=== PATIENT | female | born 1960 | race Caucasian/White ===

== ENCOUNTER 2019-06-26 12:08 | Emergency (ER) | payer OTHER, SELFPAY ==
[2019-06-26 12:20] VITALS: BP 126/72; PULSE 73; RESP 18; TEMP 37.2; O2SAT 95
--- NOTE | 2019-06-26 12:34 | ED.URI ---
HPI - URI/Sore Throat General Chief Complaint: Upper Respiratory Infection Stated Complaint: Cough sob Time Seen by Provider: 06/26/19 12:34 Source: patient and family Mode of arrival: ambulatory Limitations: no limitations History of Present Illness HPI Narrative: 59-year-old woman comes in today complaining of sinus pressure, purulent nasal drainage, facial pain at radiates to her left ear, cough and some mild shortness of breath. She states her symptoms started a week ago but she developed a fever of 101 last night. She denies history of lung disease and smoking. MD elicited complaint: fever, cough, rhinorrhea, nasal congestion and sinus pain Onset (ago): week(s) (1) Consistency: constant and progressively worsening Severity: severe Description of mucous: purulent Able to tolerate fluids by mouth: Yes Exacerbating factors: nothing Associated symptoms: fever, headache, rhinorrhea, nasal congestion, cough, shortness of breath and nausea Related Data Home Medications Medication Instructions Recorded Confirmed levetiracetam 750 mg PO DAILY 06/26/19 06/26/19 montelukast 10 mg PO DAILY 06/26/19 06/26/19 mupirocin TOPICAL 06/26/19 nystatin TOPICAL 06/26/19 pantoprazole 40 mg PO DAILY 06/26/19 06/26/19 phenytoin sodium extended 100 mg PO DAILY 06/26/19 06/26/19 Allergies Allergy/AdvReac Type Severity Reaction Status Date / Time No Known Allergies Allergy Verified 06/26/19 13:02 Review of Systems Constitutional: Constitutional: Reports fatigue and Reports fever(s) Eyes: Eyes: Denies change in vision and Denies photophobia ENT: Denies dysphagia, Reports nasal congestion and Denies sore throat Cardiovascular: Cardiovascular: Denies chest pain and Denies radiating jaw, neck or arm pain Respiratory: Respiratory: Reports cough, Reports dyspnea and Denies wheezing Gastrointestinal: Gastrointestinal: Denies abdominal pain, Denies diarrhea, Reports nausea and Denies vomiting Integumentary/Breasts: Skin/Breast: Denies pruritus, Denies erythema and Denies rash Neurologic: Denies vertigo, Denies syncope and Denies focal weakness Endocrine: Endocrine: Denies polydipsia and Denies polyuria Hematologic/Lymphatic: Hematologic/Lymphatic: Denies easy bleeding and Denies easy bruising Allergic/Immunologic: Allergic/Immunologic: Denies lip swelling and Denies wheezing PMFSH Past Medical History Medical History (Updated 06/26/19 @ 13:36 by Edy Gomez MD) GERD (gastroesophageal reflux disease) Seizures Surgical History Surgical History History of ankle surgery History of carpal tunnel surgery History of hysterectomy History of tubal ligation Hx of gastric bypass Social History Social History (Updated 06/26/19 @ 12:47 by Edy Gomez MD) Smoking status: Never smoker Alcohol intake: never Substance use: never Living arrangements: with family Exam Const: Other: Mild acute distress HENMT: Ears: external ears normal, TM's normal bilaterally and EAC's normal Face and sinus: sinus tenderness (left ) maxillary Mouth: Yes Normal oral and palatal mucosa present and Yes moist mucous membranes Throat: posterior oropharynx normal and uvula midline Eyes: Conjunctivae: conjunctivae normal Pupils: Equal, round and reactive pupils present EOM: EOMs intact bilaterally Resp: Effort & Inspection: normal respiratory effort and not labored Auscultation: clear to auscultation bilaterally, no rales, no rhonchi and no wheezes Cardio: Rate: regular rate Rhythm: regular rhythm Heart sounds: no murmurs GI: GI Palp: Yes Soft to palpation and No Tenderness to palpation present (GI) Skin: General skin exam: normal color, no jaundice and no pallor Rashes: no rashes Neuro: General: patient oriented x3, moves all extremities and CN's II-XI intact bilaterally Speech: normal speech Extrem: General: normal to inspection and no clubbing, cyanosis o
[2019-06-26 13:28] LABS: Influenza Control Valid (Valid)
[2019-06-26 13:57] VITALS: RESP 17
== END 2019-06-26 13:59 | disposition home or self-care (01) ==
PROVIDERS: Emergency Provider Emergency Medicine; PCP Internal Medicine
DX: J01.80 Other acute sinusitis (principal)
CPT/HCPCS: 87804; 99283

== ENCOUNTER 2019-11-29 10:48 | Outpatient (CLI) | payer OTHER, SELFPAY ==
--- NOTE | ~2019-11-29 | MM_ITS ---
EXAMINATION: MM screening gisella BI w moni HISTORY: Screening mammogram TECHNIQUE: Craniocaudal and mediolateral oblique 3-D tomosynthesis images were obtained and synthetic 2-D images were generated. CAD analysis was submitted and interpreted. COMPARISON: 09/17/2018, 08/17/2017, 07/23/2016 bilateral digital screening mammogram examinations BREAST PARENCHYMAL COMPOSITION: The breasts are almost entirely fatty. FINDINGS: There is no evidence of suspicious mass, calcification, or architectural distortion to sugg est malignancy in either breast. There has been no suspicious interval change. IMPRESSION: 1. No mammographic evidence of malignancy. 2. Recommend routine screening mammography in one year. BI-RADS Category 1: Negative Reviewed, dictated and finalized at location A.
== END 2019-11-29 10:49 | disposition home or self-care (01) ==
LOC: CHSIMG 10:50
PROVIDERS: PCP Internal Medicine; Visit Provider Internal Medicine
DX: Z12.31 Encounter for screening mammogram for malignant neoplasm of breast (principal)
CPT/HCPCS: 77063; 77067

== ENCOUNTER 2020-03-03 09:47 | Outpatient (CLI) | payer OTHER, SELFPAY ==
[2020-03-03 10:01] LABS: Add Urine Microscopic? NO; Appearance Urine Clear (Clear); Basophils Absolute Auto 0.06 K/mm3 (0.00-0.10); Basophils Percent Auto 1.2 % (0.0-1.0); Bilirubin Urine Negative (Negative); Blood Urine Negative (Negative); Color Urine Yellow (Yellow); Eosinophils Absolute Auto 0.17 K/mm3 (0.02-0.50); Eosinophils Percent Auto 3.4 % (1.0-6.0); Glucose Urine UA Negative (Negative); Hematocrit 40.4 % (35.0-49.0); Hemoglobin 12.9 g/dL (12.0-15.0); Immature Granulocyte Absolute 0.01 K/mm3 (0.00-0.00); Immature Granulocyte Percent A 0.2 % (0.0-0.0); Ketones Urine Negative (Negative); Leukocyte Esterase Ur Negative LEU/UL (Negative); Lymphocytes Absolute Auto 1.37 K/mm3 (1.10-4.50); Lymphocytes Percent Auto 27.5 % (18.0-42.0); Mean Corpuscular HGB Conc 31.9 g/dL (32.0-36.0); Mean Platelet Volume 11.2 fl (9.2-11.8); Monocytes Absolute Auto 0.33 K/mm3 (0.10-0.90); Monocytes Percent Auto 6.6 % (2.0-11.0); Neutrophils Absolute Auto 3.1 K/mm3 (1.7-7.2); Neutrophils Percent Auto 61.1 % (50.0-70.0); Nitrate Urine Negative (Negative); Platelet Count Result 219 K/mm3 (150-420); Protein Urine Negative (Negative); Red Cell Distribution Width 13.9 % (11.6-14.4); Specific Grav Ur 1.015 (1.010-1.020); Urobilinogen Urine 0.2 mg/dL (0.2-1.0); pH Urine 6.5 (5.0-8.0)
[2020-03-03 10:48] LABS: Alanine Aminotransferase 21 U/L (14-59); Albumin Level 3.6 g/dL (3.4-5.0); Alkaline Phosphatase 139 U/L (46-116); Anion Gap 11 mmol/L (8-16); Aspartate Amino Transferase 12 U/L (15-37); Bilirubin,Total 0.3 mg/dL (0.00-1.00); Blood Urea Nitrogen 10 mg/dL (7-18); Calcium 8.9 mg/dL (8.5-10.1); Carbon Dioxide 26 mmol/L (21-32); Chloride 107 mmol/L (98-108); Cholesterol 149 mg/dL (0-200); Estimated Glomerular Filt Rate > 60; Ferritin 17 ng/mL (8-252); Glucose 90 mg/dL (70-99); HDL Direct 68 mg/dL (40-60); Iron 96 ug/dL (50-170); LDL Cholesterol Calculated 64 mg/dL (<130); Osmolality Calculated 297 mOsm/kg (285-295); Potassium 4.6 mmol/L (3.5-5.1); Sodium 144 mmol/L (136-145); Total Protein 6.5 g/dL (6.4-8.2); Triglycerides 87 mg/dL (0-150)
[2020-03-08 10:24] LABS: Vitamin D 25 Hydroxy 24 ng/mL (30-100)
== END 2020-03-03 09:48 | disposition home or self-care (01) ==
LOC: CHSLAB 09:48
PROVIDERS: PCP Internal Medicine; Visit Provider Internal Medicine
DX: Z00.00 Encounter for general adult medical examination without abnormal findings (principal)
CPT/HCPCS: 36415; 80053; 80061; 81003; 82306; 82728; 83540; 85025

== ENCOUNTER 2020-03-06 10:55 | Outpatient (CLI) | payer OTHER, SELFPAY ==
--- NOTE | ~2020-03-06 | US_ITS ---
EXAMINATION: US right upper quadrant EXAM DATE: 03/06/2020 11:36 INDICATION: Right upper quadrant pain. TECHNIQUE: Multiple grayscale and Doppler images of the abdomen right upper quadrant were obtained (b y a technologist who performed the scan) and subsequently reviewed. Comparison is made to prior exami nation from 07/24/2017. FINDINGS: The pancreatic head and body are normal in appearance. The pancreatic tail is not visualized. The l iver has normal echogenicity and contour. There are no focal liver lesions identified. There is no evidence of intrahepatic biliary duct dilation. Portal venous flow was seen in the hepatopedal, nor mal direction and has normal Doppler waveform. No right-sided hydronephrosis. Common bile duct measures 6 mm, which is normal. The gallbladder wall is normal in thickness, with ex pected amount of distention. No sonographic evidence of pericholecystic fluid. There is no cholelit hiases. Technologist noted tenderness over the otherwise sonographically unremarkable gallbladder. IMPRESSION: 1. Right upper quadrant tenderness. Sonographically normal gallbladder. Reviewed, dictated and finalized at location B. 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
== END 2020-03-06 10:56 | disposition home or self-care (01) ==
LOC: CHSIMG 10:56
PROVIDERS: PCP Internal Medicine; Visit Provider Internal Medicine
DX: R10.11 Right upper quadrant pain (principal)
CPT/HCPCS: 76705

== ENCOUNTER 2020-03-30 07:46 | Outpatient (CLI) | payer OTHER, SELFPAY ==
--- NOTE | ~2020-03-30 | NM_ITS ---
EXAMINATION: NM hepatobiliary w pharm DATE: 03/30/2020 10:44 INDICATION: Right upper quadrant abdominal pain COMPARISON: None. TECHNIQUE: 5.9 mCi Tc-99m mebrofenin (Choletec) was administered intravenously. Scintigraphic images of the abdomen were obtained for one hour. 2.6 mcg sincalide (Kinevac) was administered by slow intr avenous infusion, and imaging was continued for 30 minutes. Gallbladder ejection fraction was calcula tomy by the technologist. FINDINGS: There is normal clearance of radiotracer from the blood pool. There is homogeneous tracer uptake by t he liver. Activity progresses to the gallbladder and bowel. The gallbladder ejection fraction (GBEF) is 82% (normal 10-90%, but most patient with gallbladder dysfunction have GBEF < 35% which does over lap with the normal range). IMPRESSION: 1. Normal hepatobiliary scan. Reviewed, dictated and finalized at location A. 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
== END 2020-03-30 07:47 | disposition home or self-care (01) ==
LOC: CHSIMG 07:47
PROVIDERS: PCP Internal Medicine; Visit Provider Internal Medicine
DX: R10.11 Right upper quadrant pain (principal)
CPT/HCPCS: 78227; A9537; J2805

== ENCOUNTER 2020-06-01 17:25 | Emergency (ER) | payer OTHER, SELFPAY ==
--- NOTE | 2020-06-01 17:34 | ED.SKABFB ---
HPI - Skin/Abscess/Foreign Bdy General Chief complaint: Skin/Abscess/Foreign Body Stated complaint: left breast site infection Time Seen by Provider: 06/01/20 17:42 Source: patient Mode of arrival: ambulatory Limitations: no limitations History of Present Illness HPI narrative: 60-year-old woman comes in today complaining of pain, redness and swelling on the upper part of her left breast that started 5 days ago. Patient states that she has had skin abscesses before that were treated with I&D. She states that drained a small amount from a portion on the bottom of the abscess earlier today. Patient states she has had no fever, nausea, vomiting, lightheadedness or weakness. complaint: abscess/boil Onset (ago): day(s) (5) Location: chest Severity: moderate Quality: burning Pain Consistency: constant Relieving factors: none Exacerbating factors: palpation Context: none Associated symptoms: denies other symptoms Treatments prior to arrival: NSAID Related Data Home Medications Medication Instructions Recorded Confirmed levetiracetam 1,500 mg PO BID 06/26/19 06/01/20 montelukast 10 mg PO DAILY 06/26/19 06/01/20 pantoprazole 40 mg PO DAILY 06/26/19 06/01/20 phenytoin sodium extended 300 mg PO HS 06/26/19 06/01/20 Allergies Allergy/AdvReac Type Severity Reaction Status Date / Time No Known Allergies Allergy Verified 06/26/19 13:02 Review of Systems Constitutional: Constitutional: Denies chills and Denies fever(s) ENT: Denies nasal congestion and Denies sore throat Cardiovascular: Cardiovascular: Denies chest pain and Denies radiating jaw, neck or arm pain Respiratory: Respiratory: Denies cough and Denies dyspnea Gastrointestinal: Gastrointestinal: Denies nausea and Denies vomiting Musculoskeletal: Musculoskeletal: Denies arthralgias and Denies joint swelling Integumentary/Breasts: Skin/Breast: Denies pruritus, Reports erythema and Denies rash Neurologic: Denies vertigo, Denies dizziness, Denies syncope, Denies focal weakness and Denies weakness Hematologic/Lymphatic: Hematologic/Lymphatic: Denies easy bleeding and Denies easy bruising Allergic/Immunologic: Allergic/Immunologic: Denies lip swelling and Denies throat swelling PMFSH Past Medical History Medical History GERD (gastroesophageal reflux disease) Seizures Surgical History Surgical History History of ankle surgery History of carpal tunnel surgery History of hysterectomy History of tubal ligation Hx of gastric bypass Social History Social History Smoking status: Never smoker Alcohol intake: never Substance use: never Exam Const: General: alert Nutritional Appearance: obese Orientation/consciousness: patient oriented x3 Limitations: no limitations Other: Mild acute distress Eyes: Conjunctivae: conjunctivae normal Pupils: Equal, round and reactive pupils present EOM: EOMs intact bilaterally Resp: Effort & Inspection: normal respiratory effort and not labored Auscultation: clear to auscultation bilaterally, no rales, no rhonchi and no wheezes Cardio: Rate: regular rate Rhythm: regular rhythm Skin: General skin exam: normal color, no jaundice and no pallor Rashes: no rashes Other: 15 cm diameter area of erythema on the upper portion of the left breast and chest. There is an area of induration approximately 6 cm in diameter with an area of fluctuance in the center portion which is about 2 cm in diameter. There is no drainage. Neuro: General: patient oriented x3, moves all extremities, no focal motor deficits and CN's II-XI intact bilaterally Speech: normal speech Extrem: General: no clubbing, cyanosis or edema Psych: Appearance: grossly normal and well kempt Mental Status: mental status grossly normal Affect: normal affect Attitude: cooperative Thought
[2020-06-01 17:40] VITALS: BP 145/63; PULSE 65; RESP 16; TEMP 36.9; O2SAT 99
[2020-06-01 18:34] VITALS: RESP 20
== END 2020-06-01 18:35 | disposition home or self-care (01) ==
PROVIDERS: Emergency Provider Emergency Medicine; PCP Internal Medicine
DX: L02.213 Cutaneous abscess of chest wall (principal)
CPT/HCPCS: 10060; 87070; 87147; 87186; 87205; 99283

== ENCOUNTER 2020-06-14 08:25 | Outpatient (CLI) | payer OTHER, SELFPAY ==
--- NOTE | ~2020-06-14 | US_ITS ---
US breast LT complete DATE: 06/14/2020 08:58 INDICATION: Infected left breast sebaceous cyst TECHNIQUE: Real-time imaging and color flow imaging targeted at area of clinical complaint at 9:00 5 cm from nipple COMPARISON: 11/29/2019 bilateral digital screening mammogram FINDINGS: Within the subcutaneous adipose tissues there is an approximately 2.2 x 11.7 x 12.9 mm area of hypoechogenicity consistent with focal edema or abscess. There is adjacent increased color flow s ignal consistent with adjacent vascularity, likely due to inflammation. No underlying breast mass or suspicious shadowing is noted. IMPRESSION: Focal approximately 2.2 x 11.7 x 12.9 mm subcutaneous inflammation or abscess at 9:00 5 c m from nipple Reviewed, dictated and finalized at Location A. Reviewed, dictated and finalized at location A. 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
== END 2020-06-14 08:26 | disposition home or self-care (01) ==
LOC: CHSIMG 08:26
PROVIDERS: PCP Internal Medicine; Visit Provider Internal Medicine
DX: N60.02 Solitary cyst of left breast (principal)
CPT/HCPCS: 76641

== ENCOUNTER 2020-06-21 17:31 | Outpatient (CLI) | payer OTHER, SELFPAY ==
[2020-06-21 18:18] LABS: Phenytoin Dilantin 4 ug/mL (10-20)
== END 2020-06-21 17:32 | disposition home or self-care (01) ==
LOC: CHSLAB 17:33
PROVIDERS: PCP Internal Medicine; Visit Provider Internal Medicine
DX: G40.909 Epilepsy, unspecified, not intractable, without status epilepticus (principal)
CPT/HCPCS: 36415; 80185

== ENCOUNTER 2020-10-30 10:28 | Outpatient (CLI) | payer OTHER, SELFPAY ==
--- NOTE | ~2020-10-30 | XR_ITS ---
EXAMINATION: XR ankle RT min 3V EXAM DATE: 10/30/2020 10:50 INDICATION: Right ankle pain anterolaterally. States fall 2010 days ago. TECHNIQUE: Right ankle frontal, lateral and oblique projections obtained and reviewed. Comparison is made to prior examination from 2010. FINDINGS: The right ankle mortise appears intact. There is mild to moderate ankle joint osteoarthr itis, probably secondary to trauma given the fibular plate and supporting screws. There is an old med ial malleolar avulsion fracture. Small calcaneal spurs. There are no acute fractures identified. IMPRESSION: 1. No acute findings. 2. Hardware, arthritis and sequela from prior injury. Reviewed, dictated and finalized at location A.
== END 2020-10-30 10:29 | disposition home or self-care (01) ==
LOC: CHSIMG 10:31
PROVIDERS: PCP Internal Medicine; Visit Provider Nurse Practitioner Family
DX: M25.571 Pain in right ankle and joints of right foot (principal)
CPT/HCPCS: 73610

== ENCOUNTER 2021-02-04 07:13 | Outpatient (CLI) | payer OTHER, SELFPAY ==
[2021-02-04 07:26] LABS: Basophils Absolute Auto 0.06 K/mm3 (0.00-0.10); Basophils Percent Auto 1.2 % (0.0-1.0); Eosinophils Absolute Auto 0.17 K/mm3 (0.02-0.50); Eosinophils Percent Auto 3.3 % (1.0-6.0); Hematocrit 39.7 % (35.0-49.0); Hemoglobin 12.8 g/dL (12.0-15.0); Immature Granulocyte Absolute 0.01 K/mm3 (0.00-0.00); Immature Granulocyte Percent A 0.2 % (0.0-0.0); Lymphocytes Percent Auto 27.2 % (18.0-42.0); Mean Corpuscular HGB Conc 32.2 g/dL (32.0-36.0); Mean Corpuscular Volume 93.2 fL (78.0-102.0); Mean Platelet Volume 10.8 fl (9.2-11.8); Monocytes Absolute Auto 0.35 K/mm3 (0.10-0.90); Monocytes Percent Auto 6.8 % (2.0-11.0); Neutrophils Absolute Auto 3.2 K/mm3 (1.7-7.2); Neutrophils Percent Auto 61.3 % (50.0-70.0); Platelet Count Result 203 K/mm3 (150-420); Red Blood Count 4.26 M/mm3 (4.20-5.40); Red Cell Distribution Width 14.1 % (11.6-14.4); White Blood Count 5.1 K/mm3 (4.8-10.8)
[2021-02-04 07:36] LABS: Bilirubin Urine Negative (Negative); Blood Urine Negative (Negative); Color Urine Yellow (Yellow); Glucose Urine UA Negative (Negative); Ketones Urine Negative (Negative); Leukocyte Esterase Ur Negative (Negative); Nitrate Urine Negative (Negative); Protein Urine Negative (Negative); Specific Grav Ur 1.025 (1.010-1.020); Urobilinogen Urine 0.2 mg/dL (0.2-1.0); pH Urine 5.5 (5.0-8.0)
[2021-02-04 07:37] LABS: Add Urine Microscopic? NO; Appearance Urine Clear (Clear)
[2021-02-04 08:26] LABS: Alanine Aminotransferase 24 U/L (14-59); Albumin Level 3.5 g/dL (3.4-5.0); Alkaline Phosphatase 145 U/L (46-116); Anion Gap 10 mmol/L (8-16); Aspartate Amino Transferase 15 U/L (15-37); Bilirubin,Total 0.3 mg/dL (0.00-1.00); Blood Urea Nitrogen 9 mg/dL (7-18); Calcium 8.7 mg/dL (8.5-10.1); Carbon Dioxide 26 mmol/L (21-32); Chloride 106 mmol/L (98-108); Cholesterol 151 mg/dL (0-200); Estimated Glomerular Filt Rate > 60; Ferritin 12 ng/mL (8-252); Free T3 2.42 pg/mL (2.18-3.98); Free T4 Free Thyroxine 0.74 ng/dL (0.76-1.46); Glucose 89 mg/dL (70-99); HDL Direct 59 mg/dL (40-60); Iron 56 ug/dL (50-170); LDL Cholesterol Calculated 72 mg/dL (<130); Osmolality Calculated 291 mOsm/kg (285-295); Percent Iron Saturation 18 % (12-57); Phenytoin Dilantin 6 ug/mL (10-20); Potassium 4.4 mmol/L (3.5-5.1); Sodium 142 mmol/L (136-145); Thyroid Stimulating Hormone 3.92 uIU/mL (0.36-3.74); Total Protein 6.2 g/dL (6.4-8.2); Triglycerides 102 mg/dL (0-150); Vitamin B12 1213 pg/mL (193-986)
[2021-02-06 18:06] LABS: Vitamin D 25 Hydroxy 23 ng/mL (30-100)
[2021-02-07 06:09] LABS: Zinc 76 mcg/dL (60-130)
[2021-02-07 15:21] LABS: Red Blood Cell Folate 601 ng/mL RBC (>280)
[2021-02-08 19:00] LABS: Vitamin A 52 mcg/dL (38-98)
[2021-02-12 04:09] LABS: Thyroglobulin 5.4 ng/mL (2.8-40.9); Thyroglobulin Antibodies <1 IU/mL (<=1); Thyroid Peroxidase Antibodies 6 IU/mL (<9)
== END 2021-02-04 07:14 | disposition home or self-care (01) ==
LOC: CHSLAB 07:15
PROVIDERS: PCP Internal Medicine; Visit Provider Internal Medicine
DX: G40.309 Generalized idiopathic epilepsy and epileptic syndromes, not intractable, without status epilepticus (principal); I10 Essential (primary) hypertension; E61.1 Iron deficiency; Z98.84 Bariatric surgery status; E03.9 Hypothyroidism, unspecified
CPT/HCPCS: 36415; 80053; 80061; 80185; 81003; 82306; 82607; 82728; 82747; 83540; 83550; 84432; 84439; 84443; 84481; 84590; 84630; 85025; 86376; 86800

== ENCOUNTER 2021-02-08 09:46 | Outpatient (CLI) | payer OTHER, SELFPAY | END 2021-02-08 09:47 | disposition home or self-care (01) | LOC: CHSIMG 09:50 | PROVIDERS: PCP Internal Medicine; Visit Provider Internal Medicine | DX: R11.2 Nausea with vomiting, unspecified (principal); Z53.8 Procedure and treatment not carried out for other reasons | CPT/HCPCS: 99199 ==

== ENCOUNTER 2021-02-11 10:25 | Outpatient (CLI) | payer OTHER, SELFPAY ==
--- NOTE | ~2021-02-11 | US_ITS ---
EXAMINATION: US thyroid DATE: 02/11/2021 13:12 INDICATION: Hypothyroidism. TECHNIQUE: Multiple ultrasound images of the thyroid were obtained. COMPARISON: None. FINDINGS: The right thyroid lobe measures 4.2 x 1.7 x 1.2 cm. The left thyroid lobe measures 4.4 x 1.0 x 1.6 c m. In the right thyroid lobe, there is a 7 mm mixed cystic and solid, hypoechoic, [id number] no dule with smooth margin without echogenic foci (TI-RADS TR3). IMPRESSION: 1. Small thyroid nodule, likely not clinically significant. No follow-up is needed. Reviewed, dictated and finalized at location A. IMPRESSION: 1. Small thyroid nodule, likely not clinically significant. No follow-up is nee ded.
--- NOTE | ~2021-02-11 | NM_ITS ---
EXAMINATION: NM hepatobiliary wo pharm DATE: 02/11/2021 13:14 INDICATION: Right upper quadrant pain, nausea and vomiting COMPARISON: 03/30/2020 TECHNIQUE: 5 mCi Tc-99m mebrofenin (Choletec) was administered intravenously. Scintigraphic images o f the abdomen were obtained for one hour. At the 1 hour time point, the patient drank 8 oz Ensure, an d imaging was continued for 60 minutes. Gallbladder ejection fraction was calculated by the technolog ist. FINDINGS: There is normal clearance of radiotracer from the blood pool. There is homogeneous tracer u ptake by the liver. Activity progresses to the bowel and gallbladder. The gallbladder ejection fract ion (GBEF) is 77%. Note that with this technique, normal GBEF >= 33%. Per report from the technologis t the patient's symptoms were reproduced after drinking Ensure. IMPRESSION: 1. Normal hepatobiliary scan. Reviewed, dictated and finalized at location A.
== END 2021-02-11 10:26 | disposition home or self-care (01) ==
LOC: CHSIMG 10:26
PROVIDERS: PCP Internal Medicine; Visit Provider Internal Medicine
DX: E03.9 Hypothyroidism, unspecified (principal); R10.11 Right upper quadrant pain; R11.2 Nausea with vomiting, unspecified; Z98.84 Bariatric surgery status
CPT/HCPCS: 76536; 78226; A9537

== ENCOUNTER 2021-02-12 07:50 | Outpatient (CLI) | payer OTHER, SELFPAY ==
--- NOTE | ~2021-02-12 | CT_ITS ---
EXAMINATION: CT abdomen w con EXAM DATE: 02/12/2021 08:15 INDICATION: RUQ Pain, Nausea, Vomiting RUQ PAIN,N/V,X1YR Worsening X2mo . TECHNIQUE: Spiral CT of the abdomen was performed following intravenous injection of 100 mL Omnipaque 350. Axial, coronal and sagittal images of the abdomen were reviewed. The dose-length product (DLP ) for this examination was 1004.64 mGy-cm. The exposure was tailored according to patient size (auto mA exposure control), and iterative reconstruction (ASIR) was used as additional dose reduction tech nique. There is no prior study for comparison. FINDINGS: The liver, spleen, adrenal glands and pancreas are unremarkable. Gallbladder is unremarkab le. No biliary obstruction. Portal and splenic veins are patent. Kidneys enhance symmetrically. T here is no hydronephrosis. There is a 3 cm cyst off the superior pole of the right kidney. There is no retroperitoneal lymphadenopathy. There are surgical changes from intact gastric bypass surgery. There is expected amount of colonic s tool. No free intraperitoneal gas. The heart is normal in size. There are no pericardial or pleu ral effusions. The lung bases are unremarkable. IMPRESSION: No acute intra-abdominal findings. Reviewed, dictated and finalized at location A.
== END 2021-02-12 07:51 | disposition home or self-care (01) ==
LOC: CHSIMG 07:51
PROVIDERS: PCP Internal Medicine; Visit Provider Internal Medicine
DX: R10.11 Right upper quadrant pain (principal); R11.2 Nausea with vomiting, unspecified
CPT/HCPCS: 74160; Q9967

== ENCOUNTER 2022-02-10 10:51 | Outpatient (CLI) | payer OTHER, SELFPAY ==
[2022-02-10 11:03] LABS: Basophils Absolute Auto 0.05 K/mm3 (0.00-0.10); Basophils Percent Auto 0.9 % (0.0-1.0); Eosinophils Absolute Auto 0.21 K/mm3 (0.02-0.50); Eosinophils Percent Auto 3.7 % (1.0-6.0); Hemoglobin 12.2 g/dL (12.0-15.0); Immature Granulocyte Absolute 0.02 K/mm3 (0.00-0.00); Immature Granulocyte Percent A 0.4 % (0.0-0.0); Lymphocytes Absolute Auto 1.61 K/mm3 (1.10-4.50); Lymphocytes Percent Auto 28.6 % (18.0-42.0); Mean Corpuscular HGB Conc 31.3 g/dL (32.0-36.0); Mean Corpuscular Hemoglobin 28.8 pg (27.0-31.0); Mean Corpuscular Volume 92.2 fL (78.0-102.0); Mean Platelet Volume 10.8 fl (9.2-11.8); Monocytes Absolute Auto 0.37 K/mm3 (0.10-0.90); Monocytes Percent Auto 6.6 % (2.0-11.0); Neutrophils Absolute Auto 3.4 K/mm3 (1.7-7.2); Neutrophils Percent Auto 59.8 % (50.0-70.0); Platelet Count Result 259 K/mm3 (150-420); Red Blood Count 4.23 M/mm3 (4.20-5.40); Red Cell Distribution Width 14.6 % (11.6-14.4); White Blood Count 5.6 K/mm3 (4.8-10.8)
[2022-02-10 11:04] LABS: Add Urine Microscopic? NO; Appearance Urine Clear (Clear); Bilirubin Urine Negative (Negative); Blood Urine Negative (Negative); Color Urine Yellow (Yellow); Glucose Urine UA Negative (Negative); Ketones Urine Negative (Negative); Leukocyte Esterase Ur Negative LEU/UL (Negative); Nitrate Urine Negative (Negative); Protein Urine Negative (Negative); Urobilinogen Urine 0.2 mg/dL (0.2-1.0)
[2022-02-10 11:56] LABS: Alanine Aminotransferase 20 U/L (14-59); Albumin Level 3.8 g/dL (3.4-5.0); Alkaline Phosphatase 163 U/L (46-116); Anion Gap 8 mmol/L (8-16); Aspartate Amino Transferase 17 U/L (15-37); Bilirubin,Total 0.3 mg/dL (0.00-1.00); Blood Urea Nitrogen 9 mg/dL (7-18); Calcium 8.9 mg/dL (8.5-10.1); Carbon Dioxide 26 mmol/L (21-32); Chloride 108 mmol/L (98-108); Cholesterol 168 mg/dL (0-200); Estimated Glomerular Filt Rate > 60; Ferritin 12 ng/mL (8-252); Free T4 Free Thyroxine 0.77 ng/dL (0.76-1.46); Glucose 94 mg/dL (70-99); HDL Direct 77 mg/dL (40-60); Iron 43 ug/dL (50-170); LDL Cholesterol Calculated 70 mg/dL (<130); Osmolality Calculated 292 mOsm/kg (285-295); Percent Iron Saturation 12 % (12-57); Phenytoin Dilantin 6 ug/mL (10-20); Potassium 4.4 mmol/L (3.5-5.1); Sodium 142 mmol/L (136-145); Thyroid Stimulating Hormone 2.93 uIU/mL (0.36-3.74); Total Protein 6.7 g/dL (6.4-8.2); Triglycerides 106 mg/dL (0-150)
== END 2022-02-10 10:52 | disposition home or self-care (01) ==
LOC: CHSLAB 10:53
PROVIDERS: PCP Internal Medicine; Visit Provider Internal Medicine
DX: Z00.00 Encounter for general adult medical examination without abnormal findings (principal); D50.9 Iron deficiency anemia, unspecified; Z51.81 Encounter for therapeutic drug level monitoring
CPT/HCPCS: 36415; 80053; 80061; 80185; 81003; 82728; 83540; 83550; 84439; 84443; 85025

== ENCOUNTER 2022-03-10 12:51 | Outpatient (CLI) | payer OTHER, SELFPAY ==
--- NOTE | ~2022-03-10 | MM_ITS ---
EXAMINATION: MM screening gisella BI w moni HISTORY: Screening mammogram TECHNIQUE: Craniocaudal and mediolateral oblique 3-D tomosynthesis images were obtained and synthetic 2-D images were generated. CAD analysis was submitted and interpreted. COMPARISON: left breast ultrasound complete examination 11/29/2019, 09/17/2018, 08/17/2017 bilateral screening mammogram examinations BREAST PARENCHYMAL COMPOSITION: The breasts are almost entirely fatty. FINDINGS: There is no evidence of suspicious mass, calcification, or architectural distortion to sugg est malignancy in either breast. There has been no suspicious interval change. IMPRESSION: 1. No mammographic evidence of malignancy. 2. Recommend routine screening mammography in one year. BI-RADS Category 1: Negative Reviewed, dictated and finalized at location A. 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
--- NOTE | ~2022-03-10 | DEXA_ITS ---
Bone Density Report Name: NICK CHIRINOS Age: 61 Sex: Female Ethnicity: White Date of : 1960 Indication: postmenopausal; screening for osteoporosis; height loss; prior fracture; seizure disorder; hysterectomy; Referring Provider: Joshua Alcazar Study: Bone densitometry was performed. Exam Date: March 10, 2022 Accession number: [id number] Bone Density: Region BMD T-score Z-score Classification AP Spine(L1-L4) 0.836 -1.9 -0.5 Osteopenia Femoral Neck (Left) 0.599 -2.3 -0.9 Osteopenia Total Hip (Left) 0.731 -1.7 -0.7 Osteopenia Femoral Neck (Right) 0.638 -1.9 -0.6 Osteopenia Total Hip (Right) 0.791 -1.2 -0.2 Osteopenia Femoral Neck Mean 0.618 -2.1 -0.8 Osteopenia Total Hip Mean 0.761 -1.5 -0.5 Osteopenia World Health Organization criteria for BMD impression classify patients as: Normal (T-score at or above -1.0), Osteopenia (T-score between -1.0 and -2.5), or Osteoporosis (T-score at or below -2.5). 10-year Fracture Risk(1): Major Osteoporotic Fracture 15% Hip Fracture 2.1% Reported Risk Factors: [place] (), Neck BMD=0.599, BMI=48.8, previous fracture Input outside FRAX(R) limits. Adjusted to:Ndlrpf=728 kg (1) FRAX(R) Version 3.08. Fracture probability calculated for an untreated patient. Fracture probability may be lower if the patient has received treatment. Clinical Information Provided by Patient: Has had a low trauma fracture Has used the following medications: Vitamin D Has the following medical conditions: Any Seizure Disorders, Hysterectomy Patient maximum height was 64 Menopause Age: 39 Onset of menses at age 12 Number of children 1 Impression: The patient has low bone mass, based on the Left Femoral Neck T-score. The patient has risk factors, including: previous fracture. Discussion: BONE DENSITY IS LOW AT ONE OR MORE SKELETAL SITES. This patient's lowest T-score is low at one or more skeletal sites. It meets the World Health Organization's (WHO) criteria for ?low bone mass? (T-score between -1.0 and -2.5). The patient's 10-year risk of fracture as calculated by FRAX is less than the threshold where pharmacological therapy is recommended by the National Osteoporosis Foundation (NOF). However, all treatment decisions require clinical judgment and consideration of individual patient factors, including patient preferences, comorbidities, previous drug use, risk factors not captured in the FRAX model (e.g., frailty, falls, vitamin D deficiency, increased bone turnover, interval significant decline in bone density) and possible under or overestimation of fracture risk by FRAX. The patient should follow a healthful lifestyle (good nutrition with adequate calcium and vitamin D, and appropriate weight-bearing exercise). Follow-Up: Consider
== END 2022-03-10 12:52 | disposition home or self-care (01) ==
LOC: CHSIMG 12:52
PROVIDERS: PCP Internal Medicine; Visit Provider Internal Medicine
DX: M81.0 Age-related osteoporosis without current pathological fracture (principal); Z12.31 Encounter for screening mammogram for malignant neoplasm of breast
CPT/HCPCS: 77063; 77067; 77080

== ENCOUNTER 2022-06-12 11:11 | Outpatient (CLI) | payer OTHER, SELFPAY ==
[2022-06-12 11:28] LABS: Basophils Absolute Auto 0.06 K/mm3 (0.00-0.10); Basophils Percent Auto 1.2 % (0.0-1.0); Eosinophils Absolute Auto 0.17 K/mm3 (0.02-0.50); Eosinophils Percent Auto 3.3 % (1.0-6.0); Hematocrit 35.6 % (35.0-49.0); Hemoglobin 11.1 g/dL (12.0-15.0); Immature Granulocyte Absolute 0.02 K/mm3 (0.00-0.00); Immature Granulocyte Percent A 0.4 % (0.0-0.0); Lymphocytes Absolute Auto 1.37 K/mm3 (1.10-4.50); Mean Corpuscular HGB Conc 31.2 g/dL (32.0-36.0); Mean Corpuscular Hemoglobin 27.9 pg (27.0-31.0); Mean Corpuscular Volume 89.4 fL (78.0-102.0); Mean Platelet Volume 10.7 fl (9.2-11.8); Monocytes Absolute Auto 0.31 K/mm3 (0.10-0.90); Monocytes Percent Auto 6.1 % (2.0-11.0); Neutrophils Absolute Auto 3.2 K/mm3 (1.7-7.2); Platelet Count Result 226 K/mm3 (150-420); Red Blood Count 3.98 M/mm3 (4.20-5.40); Red Cell Distribution Width 14.9 % (11.6-14.4); White Blood Count 5.1 K/mm3 (4.8-10.8)
[2022-06-12 12:41] LABS: Ferritin 14 ng/mL (8-252); Iron 45 ug/dL (50-170)
== END 2022-06-12 11:12 | disposition home or self-care (01) ==
LOC: CHSLAB 11:14
PROVIDERS: PCP Internal Medicine; Visit Provider Internal Medicine
DX: E61.1 Iron deficiency (principal)
CPT/HCPCS: 36415; 82728; 83540; 85025

== ENCOUNTER 2022-06-23 13:07 | Outpatient (RCR) | payer OTHER, SELFPAY ==
--- NOTE | 2022-06-23 14:00 | PTOPEVAL1 ---
Assessment and note entered by [facility] Evaluation Information Assessment Status Evaluation Diagnosis BPPV Onset 05/23/22 Subjective Information Pt. reports she has noticed dizziness with turning her head, leaning forward and getting out of bed in the past 4 weeks. She describes a spinning when she gets dizzy. She states that she will close her eyes to stop the spinning. Pt. reports that she is taking meclizine currently 1x/day. She reports she has an episode of dizziness daily. She continues to drive despite the dizziness. She reports that her goal is to decrease her dizziness. Reported Pain Level Pain Score 0: Self Report Assessment PT Clinical Summary Pt. enters the clinic with a medical diagnosis of BPPV. Despite reports consistent with BPPV she demonstrates no nystagmus, however does report vertigo to the left. At this time continued skilled PT is indicated in order to decrease vertigo to allow for improved IADL performance. Plan of Care Interventions Neuro Re-education,Therapeutic Exercise Other Interventions cannalith repositioning PT Services Indicated Yes Treatment Frequency and Continue with 1-2 additional treatment session to Duration address dizzness. These treatments will address the objective and functional deficits as defined above. The patient will be advanced safely and appropriately in order for the patient to progress towards his/her prior level of function. Additional exercises will be introduced and as well as a comprehensive home exercise program upon discharge, if needed, ?to ensure carryover of functional gains achieved in the clinic. This treatment plan has been reviewed and agreement upon by the patient.
== END 2022-06-23 14:34 | disposition home or self-care (01) ==
LOC: CHSPT 13:07
PROVIDERS: PCP Internal Medicine; Visit Provider Internal Medicine
DX: R42 Dizziness and giddiness (principal)
CPT/HCPCS: 95992; 97161

== ENCOUNTER 2022-07-04 11:41 | Outpatient (CLI) | payer OTHER, SELFPAY ==
--- NOTE | 2022-07-04 11:50 | PC.NURSE ---
Here for OP iron therapy, to 201 on arrival
[2022-07-04] MEDS: IRON SUCROSE COMPLEX 500 MG in SODIUM CHLORIDE 0.9% IV 250 ML 62.5 MG IVPB (12:05)
--- NOTE | 2022-07-04 16:24 | PC.NURSE ---
Patient completed IV infusion. Tolerated well with no c/o. IV removed intact. Dressing applied. Discussed nect appointment,
== END 2022-07-04 11:42 | disposition home or self-care (01) ==
LOC: CHSTREATRM 11:43
PROVIDERS: PCP Internal Medicine; Visit Provider Internal Medicine
DX: D50.9 Iron deficiency anemia, unspecified (principal)
CPT/HCPCS: 96365; 96366; J1756; J7050

== ENCOUNTER 2022-07-18 11:51 | Outpatient (CLI) | payer OTHER, SELFPAY ==
--- NOTE | 2022-07-18 11:55 | PC.NURSE ---
Here for infusion of iron, to room 201 on arrival
[2022-07-18] MEDS: IRON SUCROSE COMPLEX 500 MG in SODIUM CHLORIDE 0.9% IV 250 ML 62.5 MG IVPB (12:15)
--- NOTE | 2022-07-18 16:28 | PC.NURSE ---
Patient's IV infusion completed. No c/o side effects from medication. IV d/c'd intact pressure dressing applied. Patient out of facility.
== END 2022-07-18 11:52 | disposition home or self-care (01) ==
LOC: CHSTREATRM 11:52
PROVIDERS: PCP Internal Medicine; Visit Provider Internal Medicine
DX: D50.9 Iron deficiency anemia, unspecified (principal)
CPT/HCPCS: 96365; 96366; J1756; J7050

== ENCOUNTER 2022-08-05 07:00 | Outpatient (CLI) | payer OTHER, SELFPAY ==
[2022-08-05 07:15] LABS: Basophils Absolute Auto 0.08 K/mm3 (0.00-0.10); Basophils Percent Auto 1.3 % (0.0-1.0); Eosinophils Absolute Auto 0.24 K/mm3 (0.02-0.50); Eosinophils Percent Auto 3.8 % (1.0-6.0); Hematocrit 37.7 % (35.0-49.0); Hemoglobin 11.9 g/dL (12.0-15.0); Immature Granulocyte Absolute 0.03 K/mm3 (0.00-0.00); Immature Granulocyte Percent A 0.5 % (0.0-0.0); Lymphocytes Absolute Auto 1.36 K/mm3 (1.10-4.50); Lymphocytes Percent Auto 21.7 % (18.0-42.0); Mean Corpuscular HGB Conc 31.6 g/dL (32.0-36.0); Mean Corpuscular Hemoglobin 28.7 pg (27.0-31.0); Mean Corpuscular Volume 90.8 fL (78.0-102.0); Monocytes Absolute Auto 0.33 K/mm3 (0.10-0.90); Monocytes Percent Auto 5.3 % (2.0-11.0); Neutrophils Absolute Auto 4.2 K/mm3 (1.7-7.2); Neutrophils Percent Auto 67.4 % (50.0-70.0); Platelet Count Result 193 K/mm3 (150-420); Red Blood Count 4.15 M/mm3 (4.20-5.40); Red Cell Distribution Width 16.8 % (11.6-14.4); White Blood Count 6.3 K/mm3 (4.8-10.8)
[2022-08-05 09:02] LABS: Ferritin 168 ng/mL (8-252); Iron 75 ug/dL (50-170)
== END 2022-08-05 07:01 | disposition home or self-care (01) ==
LOC: CHSLAB 07:01
PROVIDERS: PCP Internal Medicine; Visit Provider Internal Medicine
DX: D50.9 Iron deficiency anemia, unspecified (principal)
CPT/HCPCS: 36415; 82728; 83540; 85025

== ENCOUNTER 2023-03-03 08:57 | Emergency (ER) | payer OTHER, SELFPAY ==
--- NOTE | ~2023-03-03 | XR_ITS ---
EXAMINATION: XR ribs RT 2V w CXR 2V DATE: 03/03/2023 09:28 INDICATION: Right chest pain. Fall. TECHNIQUE: Frontal and lateral views of the chest and 2 views on 3 radiographs of the right ribs were obtained. COMPARISON: Chest 2 views 10/22/09 FINDINGS: CHEST TWO VIEWS: There is no pneumonia, pleural effusion, or pneumothorax. The heart size is normal. RIGHT RIBS: There is no rib fracture. IMPRESSION: 1. No rib fracture. Reviewed, dictated and finalized at location E. IMPRESSION: 1. No rib fracture.
[2023-03-03 09:00] VITALS: BP 132/89; PULSE 62; RESP 20; TEMP 36.7; O2SAT 96
[2023-03-03 09:05] VITALS: RESP 18; O2SAT 96
--- NOTE | 2023-03-03 09:20 | ED.FALL ---
HPI - Fall General Chief Complaint: Fall Stated Complaint: Fall/ Rt rib pain Time Seen by Provider: 03/03/23 09:01 Source: patient Mode of arrival: ambulatory Limitations: no limitations History of Present Illness HPI Narrative: Patient is a 62-year-old female who fell while walking on the sidewalk prior to arrival 1 hour. She lost her footing and slipped and fell on outstretched arms without injury to the arms. No head or neck injury. Her only pain is her right mid rib region. No seizures. No symptoms before the fall. MD complaint: fall Onset (ago): hour(s) (1) Fall from: standing Fall witnessed: yes, by bystander Place fall occurred: street Loss of consciousness: none Prolonged down time: no Symptoms prior to fall: none Context: tripped/slipped Location of injury: chest (right) Severity: moderate Severity scale (1-10): 6 Quality: sharp Associated symptoms (after fall): denies Related Data Home Medications Medication Instructions Recorded Confirmed levetiracetam 750 mg tablet 1,500 mg PO BID 06/26/19 03/03/23 pantoprazole 40 mg tablet,delayed 40 mg PO DAILY 06/26/19 03/03/23 release phenytoin sodium extended 100 mg 300 mg PO HS 06/26/19 03/03/23 capsule amitriptyline 10 mg tablet See Rx Instructions .Route .COMPLEX 07/18/22 03/03/23 Allergies Allergy/AdvReac Type Severity Reaction Status Date / Time iohexol Allergy Hives Verified 03/03/23 09:03 [From contrast - CT, X-RAY] Review of Systems Review of Systems: All systems reviewed & are unremarkable except as noted in HPI and below Constitutional: Constitutional: Reports no additional constitutional complaints Eyes: Eyes: Reports no additional eye complaints ENT: Reports system reviewed and no additional complaints, except as documented Cardiovascular: Cardiovascular: Reports no additional cardiovascular complaints Respiratory: Respiratory: Reports no additional respiratory complaints Gastrointestinal: Gastrointestinal: Reports no additional gastrointestinal complaints Genitourinary: Genitourinary: Reports no additional female genitourinary complaints Musculoskeletal: Musculoskeletal: Reports no additional musculoskeletal complaints Integumentary/Breasts: Skin/Breast: Reports system reviewed and no additional complaints, except as docu Neurologic: Reports system reviewed and no additional complaints, except as documented Psychiatric: Psychiatric: Reports no additional psychiatric complaints Endocrine: Endocrine: Reports no additional endocrine complaints Hematologic/Lymphatic: Hematologic/Lymphatic: Reports no additional hematologic/lymphatic complaints Allergic/Immunologic: Allergic/Immunologic: Reports no additional allergic/immunologic complaints [facility] Past Medical History Medical History GERD (gastroesophageal reflux disease) Seizures Surgical History Surgical History History of ankle surgery History of carpal tunnel surgery History of hysterectomy History of tubal ligation Hx of gastric bypass Social History Social History Smoking status: Never smoker Alcohol intake: never Substance use: never Living arrangements: with family Exam Const: General: healthy appearing Nutritional Appearance: well nourished Orientation/consciousness: patient oriented x3 HENMT: Head: normal to inspection Ears: external ears normal Face/Nose/Sinus: Normal external nose present Eyes: Conjunctivae: conjunctivae normal Pupils: Equal, round and reactive pupils present EOM: EOMs intact bilaterally Neck: Neck: normal visual inspection Chest: Chest palpation & inspection: normal inspection of the chest Other: Tender right mid rib region to palpation from midthoracic posterior to midthoracic anterior Resp: Effort & Inspection: normal respiratory effort
[2023-03-03] MEDS: KETOROLAC (*BKC) 60 MG/2 ML VIAL IM (09:26)
== END 2023-03-03 09:54 | disposition home or self-care (01) ==
PROVIDERS: Emergency Provider Emergency Medicine; PCP Internal Medicine
DX: S23.41XA Sprain of ribs, initial encounter (principal); Z79.899 Other long term (current) drug therapy; W01.0XXA Fall on same level from slipping, tripping and stumbling without subsequent striking against object, initial encounter; Y92.410 Unspecified street and highway as the place of occurrence of the external cause
CPT/HCPCS: 71046; 71100; 96372; 99283; J1885

== ENCOUNTER 2023-03-13 08:29 | Outpatient (CLI) | payer OTHER, SELFPAY ==
--- NOTE | ~2023-03-13 | MM_ITS ---
EXAMINATION: MM screening gisella BI w moni HISTORY: Screening TECHNIQUE: Craniocaudal and mediolateral oblique 3-D tomosynthesis images were obtained and synthetic 2-D images were generated. CAD analysis was submitted and interpreted. COMPARISON: 03/10/2022 BREAST PARENCHYMAL COMPOSITION: The breasts are almost entirely fatty. FINDINGS: There is no evidence of suspicious mass, calcification, or architectural distortion to sugg est malignancy in either breast. There has been no suspicious interval change. IMPRESSION: 1. No mammographic evidence of malignancy. 2. Recommend routine screening mammography in one year. BI-RADS Category 1: Negative Reviewed, dictated and finalized at location A. 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
== END 2023-03-13 08:30 | disposition home or self-care (01) ==
LOC: CHSIMG 08:31
PROVIDERS: PCP Internal Medicine; Visit Provider Internal Medicine
DX: Z12.31 Encounter for screening mammogram for malignant neoplasm of breast (principal)
CPT/HCPCS: 77063; 77067

== ENCOUNTER 2023-07-27 08:49 | Outpatient (CLI) | payer OTHER, SELFPAY ==
--- NOTE | ~2023-07-27 | MM_ITS ---
EXAMINATION: MM diagnostic gisella RT w moni HISTORY: Right breast pain (Dr. Cochran clarified with the technologist Jeanne that the symptom is right sided.) TECHNIQUE: ML, MLO and CC 3-D tomosynthesis images of the right breast were performed and synthetic 2 -D images were generated. CAD analysis was submitted and interpreted. COMPARISON: 03/13/2023 bilateral screening mammogram BREAST PARENCHYMAL COMPOSITION: The breasts are almost entirely fatty. FINDINGS: No suspicious mass or architectural distortion, malignant calcification, skin thickening or retraction or significant new or developing density is detected. IMPRESSION: 1. No mammographic evidence of malignancy 2. Routine annual mammographic screening is recommended. BI-RADS Category 1: Negative Reviewed, dictated and finalized at location A.
== END 2023-07-27 08:50 | disposition home or self-care (01) ==
LOC: CHSIMG 08:51
PROVIDERS: PCP Internal Medicine; Visit Provider Internal Medicine
DX: N64.4 Mastodynia (principal)
CPT/HCPCS: 77061; 77065; G0279

== ENCOUNTER 2024-01-18 10:28 | Outpatient (CLI) | payer OTHER, SELFPAY ==
[2024-01-18 10:45] LABS: Basophils Absolute Auto 0.07 K/mm3 (0.00-0.10); Basophils Percent Auto 1.2 % (0.0-1.0); Eosinophils Absolute Auto 0.22 K/mm3 (0.02-0.50); Eosinophils Percent Auto 3.8 % (1.0-6.0); Hematocrit 40.9 % (35.0-49.0); Hemoglobin 13.2 g/dL (12.0-15.0); Immature Granulocyte Absolute 0.02 K/mm3 (0.00-0.00); Immature Granulocyte Percent A 0.3 % (0.0-0.0); Lymphocytes Absolute Auto 1.45 K/mm3 (1.10-4.50); Lymphocytes Percent Auto 25.3 % (18.0-42.0); Mean Corpuscular HGB Conc 32.3 g/dL (32-36); Mean Corpuscular Hemoglobin 29.9 pg (27.0-31.0); Mean Corpuscular Volume 92.7 fL (78.0-102.0); Mean Platelet Volume 10.5 fl (9.2-11.8); Monocytes Absolute Auto 0.38 K/mm3 (0.10-0.90); Monocytes Percent Auto 6.6 % (2.0-11.0); Neutrophils Percent Auto 62.8 % (50.0-70.0); Platelet Count Result 200 K/mm3 (150-420); Red Blood Count 4.41 M/mm3 (4.20-5.40); Red Cell Distribution Width 14.1 % (11.6-14.4); White Blood Count 5.7 K/mm3 (4.8-10.8)
[2024-01-18 11:04] LABS: Add Urine Microscopic? NO; Appearance Urine Clear (Clear); Bilirubin Urine Negative (Negative); Blood Urine Negative (Negative); Color Urine Yellow (Yellow); Glucose Urine UA Negative (Negative); Ketones Urine Negative (Negative); Leukocyte Esterase Ur Negative LEU/UL (Negative); Nitrate Urine Negative (Negative); Protein Urine Negative (Negative); Specific Grav Ur 1.025 (1.010-1.020); Urobilinogen Urine 0.2 mg/dL (0.2-1.0); pH Urine 5.5 (5.0-8.0)
[2024-01-18 17:06] LABS: Alanine Aminotransferase 39 U/L (14-59); Alkaline Phosphatase 176 U/L (46-116); Anion Gap 9 mmol/L (4-12); Aspartate Amino Transferase 26 U/L (15-37); Bilirubin,Total 0.2 mg/dL (0.00-1.00); Blood Urea Nitrogen 10 mg/dL (7-18); Calcium 8.8 mg/dL (8.5-10.1); Carbon Dioxide 28 mmol/L (21-32); Chloride 105 mmol/L (98-108); Cholesterol 149 mg/dL (0-200); Estimated Glomerular Filt Rate > 60; Ferritin 41 ng/mL (8-252); Free T4 Free Thyroxine 0.77 ng/dL (0.76-1.46); Glucose 88 mg/dL (70-99); HDL Direct 59 mg/dL (40-60); Iron 71 ug/dL (50-170); LDL Cholesterol Calculated 71 mg/dL (<130); Osmolality Calculated 292 mOsm/kg (285-295); Potassium 4.3 mmol/L (3.5-5.1); Sodium 142 mmol/L (136-145); Thyroid Stimulating Hormone 2.55 uIU/mL (0.36-3.74); Total Protein 6.5 g/dL (6.4-8.2); Triglycerides 96 mg/dL (0-150)
== END 2024-01-18 10:29 | disposition home or self-care (01) ==
LOC: CHSLAB 10:31
PROVIDERS: PCP Internal Medicine; Visit Provider Internal Medicine
DX: D50.9 Iron deficiency anemia, unspecified (principal); E78.2 Mixed hyperlipidemia; N39.0 Urinary tract infection, site not specified; Z98.84 Bariatric surgery status
CPT/HCPCS: 36415; 80053; 80061; 81003; 82728; 83540; 84439; 84443; 85025

== ENCOUNTER 2024-01-21 11:27 | Outpatient (CLI) | payer OTHER, SELFPAY ==
--- NOTE | ~2024-01-21 | XR_ITS ---
AP and lateral views of the left hip Clinical history: Pain Findings: No acute fracture or dislocation is seen. Osseous alignment is anatomic. Left hip joint spa ce is intact, with minimal spurring at the superolateral acetabular margin. Soft tissues are unremark able. Impression: Minimal degenerative change, as above. Reviewed, dictated and finalized at location . Impression: Minimal degenerative change, as above.
== END 2024-01-21 11:28 | disposition home or self-care (01) ==
LOC: CHSIMG 11:30
PROVIDERS: PCP Internal Medicine; Visit Provider Internal Medicine
DX: M81.0 Age-related osteoporosis without current pathological fracture (principal)
CPT/HCPCS: 73502

== ENCOUNTER 2024-03-11 11:55 | Outpatient (CLI) | payer OTHER, SELFPAY ==
[2024-03-11 12:11] LABS: Basophils Absolute Auto 0.05 K/mm3 (0.00-0.10); Eosinophils Absolute Auto 0.19 K/mm3 (0.02-0.50); Eosinophils Percent Auto 3.8 % (1.0-6.0); Hematocrit 39.5 % (35.0-49.0); Hemoglobin 12.7 g/dL (12.0-15.0); Immature Granulocyte Absolute 0.02 K/mm3 (0.00-0.00); Immature Granulocyte Percent A 0.4 % (0.0-0.0); Lymphocytes Absolute Auto 1.64 K/mm3 (1.10-4.50); Lymphocytes Percent Auto 32.6 % (18.0-42.0); Mean Corpuscular HGB Conc 32.2 g/dL (32-36); Mean Corpuscular Volume 93.2 fL (78.0-102.0); Mean Platelet Volume 11.2 fl (9.2-11.8); Monocytes Absolute Auto 0.36 K/mm3 (0.10-0.90); Monocytes Percent Auto 7.2 % (2.0-11.0); Neutrophils Absolute Auto 2.77 K/mm3 (1.70-7.20); Platelet Count Result 204 K/mm3 (150-420); Red Blood Count 4.24 M/mm3 (4.20-5.40); Red Cell Distribution Width 14.2 % (11.6-14.4)
[2024-03-11 12:38] LABS: CRP 0.9 mg/dL (0.0-0.9)
[2024-03-11 13:32] LABS: Erythrocyte Sedimentation Rate 20 mm/hr (0-20)
[2024-03-17 19:48] LABS: Calprotectin, Stool 66 mcg/g
== END 2024-03-11 11:56 | disposition home or self-care (01) ==
LOC: CHSLAB 11:56
PROVIDERS: PCP Internal Medicine; Visit Provider Internal Medicine
DX: K51.90 Ulcerative colitis, unspecified, without complications (principal)
CPT/HCPCS: 36415; 83993; 85025; 85652; 86140

== ENCOUNTER 2024-03-14 14:38 | Outpatient (CLI) | payer OTHER, SELFPAY ==
--- NOTE | ~2024-03-14 | DEXA_ITS ---
Bone Density Report Name: NICK CHIRINOS Age: 63 Sex: Female Ethnicity: White Date of : 1960 Indication: osteopenia; height loss; prior fracture; seizure disorder; hysterectomy; Referring Provider: Joshau Alcazar Study: Bone densitometry was performed. Exam Date: March 14, 2024 Accession number: [id number] Bone Density: Region BMD T-score Z-score Classification AP Spine(L1-L4) 0.848 -1.8 -0.2 Osteopenia Femoral Neck (Left) 0.588 -2.3 -0.9 Osteopenia Total Hip (Left) 0.714 -1.9 -0.8 Osteopenia Femoral Neck (Right) 0.637 -1.9 -0.5 Osteopenia Total Hip (Right) 0.780 -1.3 -0.2 Osteopenia Femoral Neck Mean 0.613 -2.1 -0.7 Osteopenia Total Hip Mean 0.747 -1.6 -0.5 Osteopenia World Health Organization criteria for BMD impression classify patients as: Normal (T-score at or above -1.0), Osteopenia (T-score between -1.0 and -2.5), or Osteoporosis (T-score at or below -2.5). 10-year Fracture Risk(1): Major Osteoporotic Fracture 15% Hip Fracture 2.2% Reported Risk Factors: [place] (), Neck BMD=0.588, BMI=48.8, previous fracture Input outside FRAX(R) limits. Adjusted to:Jnsamo=286 kg (1) FRAX(R) Version 3.08. Fracture probability calculated for an untreated patient. Fracture probability may be lower if the patient has received treatment. Previous Exams: Region Exam Age BMD T-score BMD Change BMD Change Date g/cm2 vs Baseline vs Previous AP Spine (L1-L4) 03/14/2024 63 0.848 -1.8 0.012 (1.4%) 0.012 (1.4%) 03/10/2022 61 0.836 -1.9 Total Hip(Left) 03/14/2024 63 0.714 -1.9 -0.017 (-2.3%) -0.017 (-2.3%) 03/10/2022 61 0.731 -1.7 Total Hip(Right) 03/14/2024 63 0.780 -1.3 -0.011 (-1.4%) -0.011 (-1.4%) 03/10/2022 61 0.791 -1.2 *Denotes significance at 95% confidence level, LSC for AP Spine = 0.022 g/cm2, LSC for Total Hip = 0.027 g/cm2 Clinical Information Provided by Patient: Has had a low trauma fracture Has the following medical conditions: Any Seizure Disorders, Hysterectomy Patient maximum height was 64 Menopause Age: 39 No regular weight bearing exercise Drinks caffeinated beverages Onset of menses at age 12 Number of children 1 Impression: The patient has low bone mass, based on the Left Femoral Neck T-score. The patient has risk factors, including: previous fracture. No significant bone loss was observed. Discussion: BONE DENSITY IS LOW AT ONE OR MORE SKELETAL SITES. This patient's lowest T-score is low at one or more skeletal sites. It meets the World Health Organization's (WHO) criteria for ?low bone mass? (T-score between -1.0 and -2.5). The patient's 10-year risk of fracture as calculated by FRAX is less than the threshold where pharmacological therapy is recommended by the National Osteoporosis Foundation (NOF). However, all treatment decisions require clinical judgment and consideration of individual patient factors, including patient preferences, comorbidities, previous drug use, risk factors not captured in the FRAX model (e.g., frailty, falls, vitamin D deficiency, increased bone turnover, interval significant decline in bone density) and possible under or overestimation of fracture risk by FRAX. The patient should follow a healthful lifestyle (good nutrition with adequate calcium and vitamin D, and appropriate weight-bearing exercise). Follow-Up: Consider repeating this study in 2 to 3 years to reassess this patient's status, or sooner if there is some new clinical indication. Reported by: JU on 03/15/2024 3:28:00 PM. Reviewed, dictated and finalized at location A.
--- NOTE | ~2024-03-14 | XR_ITS ---
XR hip LT min 2V Ordering provider: Joshua Alcazar MD History: . left hip pain . Comparison: None. FINDINGS: BONES: No acute fracture or dislocation. Old healed fracture in the lateral acetabulum with the newbo rn formation. Indeterminate age fracture in the left superior pubic ramus. HIP JOINT SPACES: Slight narrowing of the joint space. PUBIC SYMPHYSIS: Pubic symphysitis. SOFT TISSUES: Calcification the left upper thigh medially. IMPRESSION: Fracture in the left superior pubic ramus. Follow-up and further evaluation advised. Reviewed, dictated and finalized at location A. 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 Follow-up and further evaluation adv ised.
== END 2024-03-14 14:39 | disposition home or self-care (01) ==
LOC: CHSIMG 14:39
PROVIDERS: PCP Internal Medicine; Visit Provider Internal Medicine
DX: M25.552 Pain in left hip (principal); S32.512A Fracture of superior rim of left pubis, initial encounter for closed fracture; M85.89 Other specified disorders of bone density and structure, multiple sites
CPT/HCPCS: 73502; 77080

== ENCOUNTER 2024-04-01 10:09 | Outpatient (CLI) | payer OTHER, SELFPAY ==
[2024-04-01 10:25] VITALS: BP 136/72; PULSE 58; RESP 18; TEMP 36; O2SAT 94
[2024-04-01] MEDS: ZOLEDRONIC ACID 5 MG/100 ML 100 ML 400 MG IVPB (10:53)
== END 2024-04-01 10:10 | disposition home or self-care (01) ==
PROVIDERS: PCP Internal Medicine; Visit Provider Internal Medicine
DX: M81.0 Age-related osteoporosis without current pathological fracture (principal)
CPT/HCPCS: 96365; 96374; J3489

== ENCOUNTER 2024-04-22 12:00 | Outpatient (CLI) | payer OTHER, SELFPAY ==
--- NOTE | ~2024-04-22 | MM_ITS ---
EXAMINATION: MM screening gisella BI w moni HISTORY: Screening TECHNIQUE: Craniocaudal and mediolateral oblique 3-D tomosynthesis images were obtained and synthetic 2-D images were generated. CAD analysis was submitted and interpreted. COMPARISON: Comparison to multiple prior studies sequentially, with oldest reviewed study dated 08/17. BREAST PARENCHYMAL COMPOSITION: Not Dense: The breasts are almost entirely fatty. FINDINGS: There is no evidence of suspicious mass, calcification, or architectural distortion to sugg est malignancy in either breast. There has been no suspicious interval change. IMPRESSION: 1. No mammographic evidence of malignancy. 2. Recommend routine screening mammography in one year. BI-RADS Category 1: Negative Reviewed, dictated and finalized at location B. 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
== END 2024-04-22 12:01 | disposition home or self-care (01) ==
PROVIDERS: PCP Internal Medicine; Visit Provider Internal Medicine
DX: Z12.31 Encounter for screening mammogram for malignant neoplasm of breast (principal)
CPT/HCPCS: 77063; 77067

== ENCOUNTER 2024-05-19 07:39 | Outpatient (CLI) | payer OTHER, SELFPAY ==
--- NOTE | ~2024-05-19 | MR_ITS ---
EXAMINATION: MR hip LT wo con DATE: 05/19/2024 08:32 INDICATION: Left pubic bone and acetabular fracture. TECHNIQUE: Multiplanar multisequence magnetic resonance imaging (MRI) of the left hip was performed w ithout intravenous contrast. Sequences included T1, T2 and PD-weighted imaging. COMPARISON: None FINDINGS: Bones/labrum/cartilage: Alignment is normal. Heterogeneous pattern of red and yellow marrow. No fracture, avascular necrosis or pathologic marrow replacing process. Mild left hip osteoarthritis with chronic degeneration and os sification of the right acetabular labrum which has been largely replaced by marginal osteophytes ivone ng the rim of the acetabulum. Similar findings at the contralateral left hip. Severe osteoarthritis a t the visualized lower lumbar spine. Fluid: Symmetric physiologic amount of fluid within both hip joints. Soft tissues: Symmetric muscle bulk and normal signal in the pelvis and visualized proximal thighs. The iliopsoas, gluteal and proximal hamstring tendons are normal. The uterus is not identified and has likely been s urgically resected. Limited evaluation of visceral organs of the pelvis is otherwise unremarkable. N o pathologically enlarged pelvic/inguinal lymphadenopathy. IMPRESSION: 1. Mild osteoarthritis and chronic labral degeneration at the bilateral hips. No fracture or other ac chitina osseous abnormality. Reviewed, dictated and finalized at location B. 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 Mild osteoarthritis and chronic labral degeneration at the bilateral hips. N o fracture or other acute osseous abnormality.
== END 2024-05-19 07:40 | disposition home or self-care (01) ==
LOC: CHSIMG 07:40
PROVIDERS: PCP Internal Medicine; Visit Provider Internal Medicine
DX: M16.0 Bilateral primary osteoarthritis of hip (principal)
CPT/HCPCS: 73721

== ENCOUNTER 2024-08-04 08:14 | Outpatient (CLI) | payer OTHER, SELFPAY ==
--- NOTE | ~2024-08-04 | MR_ITS ---
EXAMINATION: MR brain IAC wo/w con DATE: 08/04/2024 09:36 INDICATION: Several months of imbalance and dizziness TECHNIQUE: Magnetic resonance imaging (MRI) of the brain and brainstem was performed without and with 20 mL Multihance intravenous contrast. Sequences included sagittal and axial T1-weighted FSE, axial diffusion-weighted FS EPI, axial T2*-weighted GRE, axial T2-weighted FLAIR Propeller, axial T2-weight ed Propeller, small kkppk-qm-hcwe coronal FIESTA, small zmwhf-xa-tbqv coronal T1-weighted FSE, and sm all haota-ut-hcok axial T1-weighted SPGR. Postcontrast sequences included axial T1-weighted FSE, smal l bipdn-tu-wuol coronal T1-weighted FSE, and small kugip-mb-hlvx axial T1-weighted SPGR. Apparent dif fusion coefficient (ADC) maps were created. COMPARISON: None. FINDINGS: There are no areas of restricted diffusion to suggest acute infarction. No intracranial hemorrhage or abnormal intracranial mass lesion. There are few scattered small foci of nonspecific increased T2-we ighted signal intensity in the cerebral white matter which is within normal limits for age and likely sequela of chronic small vessel ischemic disease. There are no intraparenchymal signal abnormalities seen on the other pulse sequences. The ventricles are symmetric and normal in size. There are no abn ormal extra-axial fluid collections. Normal seventh/eighth cranial nerve complexes. Cochlea and semic ircular canals appear normal on both the left and right. No cerebellopontine angles masses. No evide nce of mastoid or middle ear fluid. Flow voids are seen in the cerebral arteries on the T2-weighted s equences consistent with their expected patency. Left vertebral artery is dominant. Bilateral P1 segm ents are patent but smaller caliber than patent bilateral posterior communicating arteries. Changes o f bilateral intraocular lens replacement. Visualized orbits and soft tissues are unremarkable. There are no areas of abnormal enhancement on the post contrast images. IMPRESSION: 1. Normal aging brain with a few scattered small foci of nonspecific white matter T2 hyperintensity l ikely sequela of chronic small vessel ischemic disease. No acute intracranial process or abnormally e nhancing brain lesions. 2. Unremarkable MR imaging of the internal auditory canals with normal 7th and 8th cranial nerve comp lexes and no cerebral pontine angle masses. Reviewed, dictated and finalized at location A. IMPRESSION: 1. Normal aging brain with a few scattered small foci of nonspecific white albert er T2 hyperintensity likely sequela of chronic small vessel ischemic disease. N o acute intracranial process or abnormally enhancing brain lesions. 2. Unremarkable MR imaging of the internal auditory canals with normal 7th and 8th cranial nerve complexes and no cerebral pontine angle masses.
--- OUTSIDE RECORDS SUMMARY | 2024-08-04 08:23 | XMS_ITS | Referral Summary ---
Author Organization [facility] Address [address] [place] [id number] Care Team Providers Care Head Of Ict Name Role Phone Joshua Alcazar MD Primary Care Provider + [phone] Allergies Active Allergy Reactions Criticality Noted Date Comments Iodinated Contrast Media Rash Medium 10/01/2018 Medications cyanocobalamin (Vitamin B-12) 500 mcg tablet daily Activ e docusate sodium (STOOL SOFTENER) 100 mg capsule daily Active levETIRAcetam (KEPPRA) 750 mg tablet TAKE 2 TABLETS BY MOUTH EVERY 12 HOURS 0 07/22/2018 Active montelukast (SINGULAIR) 10 mg tablet daily 09/22/2008 Active multivitamin tablet daily 04/22/[address] (PROTONIX) 40 mg EC tablet Take 40 mg by mouth daily 2 07/05/2018 Active phenytoin ER (DILANTIN) 100 mg ER capsule TAKE ONE CAPSULE BY MOUTH 3 TIMES A DAY AND 2 CAPSULES AT BEDTIME 0 07/07/2018 Active folic acid (FOLVITE) 800 mcg tablet Take 400 mcg by mouth daily Active cholecalciferol (VITAMIN D-3) 50,000 unit capsule Take 1 capsule (50,000 Units total) by mouth once a week 8 capsule 05/24/2020 Active Active Problems Problem Noted Date Diagnosed Date Submucosal rectal lesion 10/12/2018 Overview (10/12/2018): Added automatically from request for surgery [id number] Malabsorption 04/20/2015 Weight gain 01/05/2015 No diagnosis on [place] I 09/04/2014 Morbid obesity 09/04/2014 History of bariatric surgery 12/22/2013 Hypertension 01/13/2012 Sleep apnea syndrome 01/13/2012 Abdominal pain 11/28/2011 Disorder of lung 10/17/2011 Epilepsy 09/25/2010 Social History Tobacco Use Types Packs/Day Years Used Date Smoking Tobacco: Never Smokeless Tobacco: Never Alcohol Use Standard Drinks/Week Comments No 0 (1 standard drink = 0.6 oz pur e alcohol) Comments No Sex and Gender Information Value Date Recorded Sex Assigned at Not on file Legal Sex Female 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 Gender Identity Not on file Sexual Orientation Not on file Last Filed Vital Signs Vital Sign Reading Time Taken Comments Blood Pressure 148/82 05/09/2020 9:54 AM DINING ROOM CASHIER Pulse 48 05/09/2020 9:54 AM DINING ROOM CASHIER Temperature 36 C (96.8 F) 05/09/2020 9:54 AM DINING ROOM CASHIER Respiratory Rate 20 03/28/2020 9:05 AM DINING ROOM CASHIER Oxygen Saturation 97% 03/28/2020 9:05 AM DINING ROOM CASHIER Inhaled Oxygen Concentration - - Weight 132 kg (291 lb) 05/09/2020 9:54 AM DINING ROOM CASHIER Height 162.6 cm (5' 4 ) 05/09/2020 9:54 AM DINING ROOM CASHIER Body Mass Index 49.95 05/09/2020 9:54 AM DINING ROOM CASHIER Plan of Treatment Not on file Procedures Procedure Name Priority Date/Time Associated Diagnosis Comments FLEXIBLE SIGMOIDOSCOPY 9 9:09 AM CDT COLONOSCOPY 10/04/2018 2:24 PM CDT from Last 3 Months or Most Recently Relevant to Health Maintenance Results * FLEXIBLE SIGMOIDOSCOPY (01/10/2019 9:09 AM CDT) Anatomical Region Laterality Modality Other Narrative Procedure Note Mina De Jesus MD PhD - 01/10/2019 9:09 AM CDT ENDOSCOPY LAB Patient Name: Bronwyn Jean-Baptiste Procedure Date: 01/10/2019 9:09 AM Date of : 1960 Admit Type: Outpatient Age: 58 Gender: Female Attending MD: Mina De Jesus MD,PHD Room: [facility] 01 Note Status: Finalized Procedure: Flexible Sigmoidoscopy Indications: Iron deficiency anemia, Polypoid descending colonlesion Providers: Mina De Jesus MD, PHD Referring MD: Joshua Alcazar MD Medicines: Monitored Anesthesia Care Complications: No immediate complications. Estimated Blood Loss: Estimated blood loss: none. Procedure: Pre-Anesthesia Assessment: - Immediately prior to administration of medications,the patient was re-assessed for adequacy to receivesedatives. The benefits, risks, and alternatives to the procedureand sedation were discussed and informed consent wasobtained. The [id number] was introduced through the anusand advanced to the the left transverse colon. The flexible sigmoidoscopy was accomplished without difficulty. The patient tolerated the procedure well. The quality ofthe bowel preparation was adequate. Findings: The entire examined colon appeared normal. Impression: - The entire examined colon is normal. The previouslyseen lesion probably is a submucosal hematoma that resolved spontaneously. Recommendation: - Take iron supplement Attending Participation: I personally performed the entire procedure. Electronically signed by Mina De Jesus MD. Mina De Jesus MD, PHD 01/10/2019 9:22:56 AM Number of Addenda: 0 Note Initiated On: 01/10/2019 9:09 AM us Mina De Jesus MD PhD ENDOSCOPY PROCEDURES [place] Result * COLONOSCOPY (10/04/2018 2:24 PM CDT) Anatomical Region Laterality Modality Other Narrative Procedure Note Mina De Jesus MD PhD - 10/04/2018 2:24 PM CDT ENDOSCOPY LAB Patient Name: Bronwyn Jean-Baptiste Procedure Date: 10/04/2018 2:24 PM Date of : 1960 Admit Type: Outpatient Age: 58 Gender: Female Attending MD: Mina De Jesus MD,PHD Room: [place] [id number] Note Status: Finalized Procedure: Colonoscopy Indications: Iron deficiency anemia Providers: Mina De Jesus MD, PHD Referring MD: Joshua Alaczar MD Medicines: Monitored Anesthesia Care Complications: No immediate complications. Estimated Blood Loss: Estimated blood loss: none. Procedure: Pre-Anesthesia Assessment: - Immediately prior to administration of medications,the patient was re-assessed for adequacy to receivesedatives. The benefits, risks and alternatives of the procedureand sedation were discussed and informed consent wasobtained. All questions were answered. Please refer to the signed informed consent document in the medical record. Thescope was passed under direct vision. The [id number] introduced through the anus and advanced to theterminal ileum. The colonoscopy was performed withoutdifficulty. The patient tolerated the procedure well. The qualityof the bowel preparation was excellent. The quality of the bowel preparation was evaluated using the BBPS ([place]raw Bowel Preparation Scale) with scores of: Right Colon =3, Transverse Colon = 3 and Left Colon = 3 (entire mucosa seen well with no residual staining, small fragments of stool or opaque liquid). The total BBPS score equals 9. The bowel preparation used was polyethylene glycol(PEG) and bisacodyl tablets. Bowel prep was administeredusing a split dose. Findings: The perianal and digital rectal examinations were normal. The terminal ileum appeared normal. A 20 mm polypoid lesion was found in the descending colon upon withdrawal. The lesion was submucosal and purple blue. When thelesion was probed with cold biopsy forceps, some blood came out fromunderneath the lesion and the lesion appeared to be somewhat deflated. Thelesion was soft. The exam was otherwise without abnormality on direct and retroflexion views. Impression: - The examined portion of the ileum was normal. - A polypoid lesion in the descending colon. Rule out submucosal hematoma. - The examination was otherwise normal on direct and retroflexion views. Recommendation: - Repeat colonoscopy in 10 years for screeningpurposes. - Perform a flexible sigmoidoscopy to re-examine the descending colon submucosal lesion in 3 months. Attending Participation: I personally performed the entire procedure. Electronically signed by Mina De Jesus MD. Mina De Jesus MD, PHD 10/04/2018 2:59:44 PM Number of Addenda: 0 Note Initiated On: 10/04/2018 2:24 PM Mina De Jesus MD PhD ENDOSCOPY PROCEDURES [place] Result from Last 3 Months or Most Recently Relevant to Health Maintenance Insurance [employer] [facility] [employer] OPEN ACCESS [facility] [id number] Advance Directives For more information, please contact: [phone] * Full Code (Latest Code Status on File) Date Activated Date Inactivated Comments 03/28/2020 8:30 AM 03/28/2020 1:22 PM * Full Code Date Activated Date Inactivated Comments 01/10/2019 8:22 AM 01/10/2019 2:45 PM * Full Code Date Activated Date Inactivated Comments 10/04/2018 12:52 PM 10/04/2018 8:01 PM Care Teams Head Of Ict Relationship Specialty Start Date End Date Joshua Alcazar MD [address] [place] [address] PCP - General 01/04/10
--- OUTSIDE RECORDS SUMMARY | 2024-08-04 08:23 | XMS_ITS | Clinical Summary ---
Author Organization [facility] Address [address] [place] [id number] Care Team Providers Care Post Anesthesia Room Nurse Name Role Phone Unavailable Primary Care Provider Unavailabl e Social History Tobacco Use Types Packs/Day Years Used Date Smoking Tobacco: Never Assessed Comments Unknown Sex and Gender Information Value Date Recorded Sex Assigned at Not on file Legal Sex Female 8:24 PM CDT Gender Identity Not on file Sexual Orientation Not on file Plan of Treatment Health Maintenance Due Date Last Done Comments Cervical Cancer Screening Pa p Smear (Age 30 to 64) Every 3 Years 1960 Colorectal Cancer Screening Colonoscopy (10 Years) 1960 Annual Physical 1964 Hepatitis C 1979 DTaP, Tdap and Td Vaccines ( 1 - Tdap) 1980 Cervical Cancer Screening Pa p with HPV Testing (Age 30 to 64) Every 5 Years 1991 Cervical Cancer Screening with HPV 1991 Mammogram Screening 2001 Zoster Vaccines (1 of 2) 2011 COVID-19 Vaccine (2023-2 5 season) 2024 Influenza Adult (#1) 2024 RSV Immunization or 60+ Years (1 - 1-dose 75+ series) 2036 Meningococcal B Vaccine Aged Out No l onger eligible based on patient's age to complete this topic Meningococcal Vaccine Aged Out No juan diego nathaly eligible based on patient's age to complete this topic Pneumococcal Vaccine: Pediat rics (0 to 5 Years) and At-Risk Patients (6 to 64 Years) Aged Out No longer eligible b ased on patient's age to complete this topic RSV Immunizations Under 20 Months Aged Out No longer eligible based on patient's age to complete this topic
--- OUTSIDE RECORDS SUMMARY | 2024-08-04 08:23 | XMS_ITS | Patient Health Record ---
Author Organization [facility] Address [address] [place] [address] Care Team Providers Care Air Vice Marshal Name Role Phone Ottoniel BALDWIN, Joshua Primary Care Provider Leigh HOWARD CHARGING PLUG PLACER, CRUZITO Unavailable [phone] ALLERGIES No Known Allergies REASON FOR REFERRAL No Information MEDICATIONS Medication SIG (Take, Route, Frequency, Duration) Notes Start Date End Date Status levETIRAcetam ER 1500 MG 1 tablet Orally Once a day Active Phenytoin Sodium Extended 300 MG 1 capsule Orally Once a day Active Montelukast Sodium 10 MG 1 tablet Orally Once a day Active Stool Softener Activ e Hyoscyamine Sulfate 0.125 MG TAKE 1 TABLET SUBLINGUALLY UNDER THE TONGUE 30 MINUTES PRIOR TO MEALS. ALLOW TO DISSOLVE 90 for 90 Active Amitriptyline HCl 10 MG TAKE 1 TABLET AT BEDTIME, MAY INCREASE DOSE BY 10MG EVERY WEEK TO A MAX DOSE OF 50MG NIGHTLY for 30 Active Pantoprazole Sodium 40 MG 1 tablet Orall y Once a day Active Amitriptyline HCl 10 MG 2 tablet at bedt tung Orally Once a day for 90 days 08/16/2021 Active Multivitamin Active Cetirizine HCl 10 MG 1 tablet Orally Onc e a day Active Vitamin B12 500 MCG 1 tablet Orally Once a day Active PLAN OF TREATMENT No Information Insurance Providers Payer Name Payer Address Payer Phone Subscriber Number Group Number Insured Name Patient Relationship to Insured Coverage Start Date Coverage End Date [facility] Benefits [address] [place], [place] [id number] I [id number] Bronwyn Jean-Baptiste Self - patient is the insured MEDICAL (GENERAL) HISTORY Medical History History ICD Code asthma gastroesophageal reflux disease (GERD) hypertension insomnia epilepsy CANDIDA iron deficiency Surgical History Surgery Date(Month/Year) tubal ligation 1982 right ankle 2001 hysterectomy 1999 carpal tunnel gatsric bypass 2008 colonoscopy- normal 2011 perforated peptic ulcer 2009
--- OUTSIDE RECORDS SUMMARY | 2024-08-04 08:23 | XMS_ITS | Clinical Summary ---
Author Organization [facility] Address [address] [place] [address] Care Team Providers Care Roving Department Supervisor Name Role Phone Joshua Alcazar MD Primary Care Provider + [phone] Allergies Active Allergy Reactions Criticality Noted Date [...] (10/12/2018): Added automatically from request for surgery [id number] Malabsorption 04/20/2015 Weight gain 01/05/2015 No diagnosis on [place] I 09/04/2014 Morbid obesity 09/04/2014 History of bariatric surgery 12/22/2013 Hypertension 01/13/2012 Sleep apnea syndrome 01/13/2012 Abdominal pain 11/28/2011 Disorder of lung 10/17/2011 Epilepsy 09/25/2010 Surgical History Surgery Date Site/Laterality Comments GASTRIC BYPASS 05/04/2006 - 05/03/2007 c/b perf. anastamosis ulcer 2009 EXPLORATORY LAPAROTOMY 05/04/2009 - 05/03/2010 patch graft repair anastamosis ulcer ORIF ANKLE FRACTURE 05/04/2002 - 05/03/2003 Right CARPAL TUNNEL RELEASE Bilateral COLONOSCOPY 10/02/2018 - 10/31/2018 PARTIAL HYSTERECTOMY 10/03/1999 - 11/01/1999 complete hysterectomy Medical History Medical History Date Comments GERD (gastroesophageal reflux disease) Osteoarthritis CANDIDA (obstructive sleep apnea) Seizures (HCC) 2009 Family History Medical History Relation Name Comments Hypertension Father Hypertension; Relation Name Status Comments Father Social History Tobacco Use Types Packs/Day Years Used Date Smoking Tobacco: Never Smokeless Tobacco: Never Alcohol Use Standard Drinks/Week Comments No 0 (1 standard drink = 0.6 oz pur e alcohol) Comments No Sex and Gender Information Value Date Recorded Sex Assigned at Not on file Legal Sex Female 1:13 AM BIOENGINEER Gender Identity Not on file Sexual Orientation Not on file Obstetrics History Last Filed Vital Signs Vital Sign Reading Time Taken Comments Blood Pressure 148/82 05/09/2020 9:54 AM BIOENGINEER Pulse 48 05/09/2020 9:54 AM BIOENGINEER Temperature 36 C (96.8 F) 05/09/2020 9:54 AM BIOENGINEER Respiratory Rate 20 03/28/2020 9:05 AM BIOENGINEER Oxygen Saturation 97% 03/28/2020 9:05 AM BIOENGINEER Inhaled Oxygen Concentration - - Weight 132 kg (291 lb) 05/09/2020 9:54 AM BIOENGINEER Height 162.6 cm (5' 4 ) 05/09/2020 9:54 AM BIOENGINEER Body Mass Index 49.95 05/09/2020 9:54 AM BIOENGINEER Plan of Treatment Health Maintenance Due Date Last Done Comments Breast Cancer Screening-Mammogram 1961 Depression Screening 1961 Hepatitis C Screening 1961 DTaP/Tdap/Td Vaccine (1 - Tdap) 1972 Hepatitis B Screening 1979 Regular Well Visit/Exam 18-64 1979 Influenza Vaccine (#1) 2024 0, 03/02/2019, 03/03/2018, Additional history exists Colon Cancer Screening-Colonoscopy 10/04/2028 10/04/2018 Pneumococcal vaccine <65 Aged Out 12/27/2014 No longer eligible based on patient's age to complete this topic Colon Cancer Screening-CT Colonography Discontinued 01/10/2019, 10/04/2018 Colon Cancer Screening-DNA Stool Discontinued 01/10/2019, 10/04/2018 Colon Cancer Screening-FIT Discontinued 01/10/2019, Colon Cancer Screening-Sigmoidoscopy Discontinued 01/10/2019, 10/04/2018 Zoster Vaccine Completed 03/14/2019, 08/04/2018 Procedures Procedure Name Priority Date/Time Associated Diagnosis [...] Attending MD: Mina De Jesus MD,PHD Room: [facility] GI 01 Note Status: Finalized [...] were discussed and informed consent wasobtained. The [id number] was introduced through the anusand advanced to [...] Attending MD: Mina De Jesus MD,PHD Room: [place] [id number] Note Status: Finalized Procedure: Colonoscopy Indications: Iron [...] Thescope was passed under direct vision. The [id number] introduced through the anus and advanced to theterminal ileum. The colonoscopy was performed withoutdifficulty. The patient tolerated the procedure well. The qualityof the bowel preparation was excellent. The quality of the bowel preparation was evaluated using the BBPS ([place] Bowel Preparation Scale) with scores of: Right [...] 0 Note Initiated On: 10/04/2018 2:24 PM us Mina De Jesus MD PhD ENDOSCOPY PROCEDURES [place] l Result from Last 3 Months or Most Recently Relevant to Health Maintenance Insurance HE[employer]LINK HMO HEALTHLINK [facility] [id number] Advance Directives For more information, please contact: [phone] * Full Code (Latest Code Status on File) Date Activated Date Inactivated Comments 03/28/2020 8:30 AM 03/28/2020 1:22 PM * Full Code Date Activated Date Inactivated Comments 01/10/2019 8:22 AM 01/10/2019 2:45 PM * Full Code Date Activated Date Inactivated Comments 10/04/2018 12:52 PM 10/04/2018 8:01 PM Care Teams Roving Department Supervisor Relationship Specialty Start Date End Date Joshua Alcazar MD [address] [place] [address] PCP - General 01/04/10
--- OUTSIDE RECORDS SUMMARY | 2024-08-04 08:23 | XMS_ITS | Encounter Summary ---
Author Organization [facility] Address [address] [place] [address] Care Team Providers Care Crm Marketing Specialist Name Role Phone Maria Luisa Alcazar Primary Care Provider Alejandra britt Encounter Details Date Type Department Care Team (Late st Contact Info) Description 09/29/2002 Outpatient [facility] [address] [facility] [address] [place] [address] ULNAR NERVE LESION (Primary Dx) Social History Tobacco Use Types Packs/Day Years Used Date Smoking Tobacco: Never Assessed Comments Unknown Sex and Gender Information Value Date Recorded Sex Assigned at Not on file Legal Sex Female 2:48 AM PROGRAM SUPERVISOR Gender Identity Not on file Sexual Orientation Not on file documented as of this encounter Plan of Treatment Not on file documented as of this encounter Visit Diagnoses Diagnosis Lesion of ulnar nerve- Primary documented in this encounter Care Teams Crm Marketing Specialist Relationship Specialty Start Date End Date Maria Luisa Alcazar PCP - General 09/29/02 documented as of this encounter
--- OUTSIDE RECORDS SUMMARY | 2024-08-04 08:23 | XMS_ITS | Clinical Summary ---
Author Organization [facility] Address [address] [facility] Attn: Epic Prelude ADT [place] [address] Care Team Providers Care Proof Machine Operator Supervisor Name Role Phone Maria Luisa Alcazar Primary Care Provider Unavailabl e Social History Tobacco Use Types Packs/Day Years Used Date Smoking Tobacco: Never Assessed Comments Unknown Sex and Gender Information Value Date Recorded Sex Assigned at Not on file Legal Sex Female 2:48 AM PHYSICIAN'S ASSISTANT Gender Identity Not on file Sexual Orientation Not on file Plan of Treatment Health Maintenance Due Date Last Done Comments DTAP/TDAP/TD VACCINES (1 - Tdap) 1980 HPV/Cotest (21-29) 1982 PAP SMEAR 1982 CERVICAL CANCER SCREENING 1991 HPV/Cotest (30-65) 1991 PAP SMEAR 1991 BREAST CANCER SCREENING 2001 COLORECTAL SCREENING 2006 Colorectal Cancer Screening 2006 FIT-DNA Q 3 years 2006 FIT/FOBT Q 1 year 2006 Flex Sig/CT Colonography Q 5 years 2006 ZOSTER VACCINE (1 of 2) 2011 INFLUENZA VACCINE (#1) 2023 RSV VACCINE (60+ or ) (1 - 1-dose 75+ series) 2036 PNEUMOCOCCAL VACCINE 0-49 YEARS Aged Out No longer eligible based on patient's age to complete this topic Care Teams Proof Machine Operator Supervisor Relationship Specialty Start Date End Date Maria Luisa Alcazar PCP - General 09/29/02
== END 2024-08-04 08:15 | disposition home or self-care (01) ==
LOC: CHSIMG 08:16
PROVIDERS: PCP Internal Medicine; Visit Provider Internal Medicine
DX: R42 Dizziness and giddiness (principal); R26.89 Other abnormalities of gait and mobility; R56.9 Unspecified convulsions
CPT/HCPCS: 70553; A9577

== ENCOUNTER 2025-01-05 09:28 | Outpatient (CLI) | payer OTHER, SELFPAY ==
--- OUTSIDE RECORDS SUMMARY | 2025-01-05 09:53 | XMS_ITS | Clinical Summary ---
Author Organization [facility] Address [address] [place] [address] Care Team Providers Care Supervisor Ticket Sales Name Role Phone Unavailable Primary Care Provider [...] Screening with HPV 1991 Mammogram Screening 2001 Pneumococcal Vaccine: 50+ Ye ars (1 of 1 - PCV) 2011 Zoster Vaccines (1 of 2) 2011 COVID-19 Vaccine (2023-2 5 season) 2025 RSV Immunization or 60+ Years (1 - [...]
--- OUTSIDE RECORDS SUMMARY | 2025-01-05 09:53 | XMS_ITS | Patient Health Record ---
Author Organization [facility] Address [address] [place] [address] Care Team Providers Care Basket Maker Name Role Phone Ottoniel BALDWIN, Joshua Primary Care Provider Leigh HOWARD NUT ORCHARDIST, CRUZITO Unavailable Allergies No Known Allergies Reason For Referral No Information Medications Medication SIG (Take, Route, Frequency, Duration) Notes [...] MINUTES PRIOR TO MEALS. ALLOW TO DISSOLVE 90; Duration: 90 Active Amitriptyline HCl 10 MG TAKE 1 TABLET AT BEDTIME, MAY INCREASE DOSE BY 10MG EVERY WEEK TO A MAX DOSE OF 50MG NIGHTLY; Duration: 30 Active Pantoprazole Sodium 40 MG 1 tablet Orall y Once a day Active Amitriptyline HCl 10 MG 2 tablet at bedt tung Orally Once a day; Duration: 90 days 08/16/2021 Active Multivitamin Active Cetirizine HCl 10 MG 1 tablet Orally Onc e a day Active Vitamin B12 500 MCG 1 tablet Orally Once a day Active Plan Of Treatment No Information Insurance Providers Payer Name Payer Address Payer Phone Subscriber Number Group Number Insured Name Patient Relationship to Insured Coverage Start Date Coverage End Date [facility] Benefits [address] [place], [place] [id number] Loi Jean-Baptiste Self - patient is the insured Medical (General) History Medical History History ICD Code asthma gastroesophageal reflux disease (GERD) hypertension insomnia epilepsy CANDIDA iron deficiency Surgical History Surgery Date(Month/Year) tubal ligation 1982 right ankle 2001 hysterectomy 1999 carpal tunnel gatsric bypass 2008 colonoscopy- normal 2011 perforated peptic ulcer 2009
--- OUTSIDE RECORDS SUMMARY | 2025-01-05 09:53 | XMS_ITS | Clinical Summary ---
Author Organization [facility] Address [address] [place] [address] Care Team Providers Care Pole Peeling Machine Operator Helper Name Role Phone Joshua Alcazar MD Primary Care Provider [phone] Allergies Active Allergy Reactions Criticality Noted Date [...] (10/12/2018): Added automatically from request for surgery [id number] Malabsorption 04/20/2015 Weight gain 01/05/2015 No diagnosis on [place] I 09/04/2014 Morbid obesity 09/04/2014 History of [...] on file Legal Sex Female 1:13 AM BUSHING AND BROACH OPERATOR Gender Identity Not on file Sexual Orientation Not on file Obstetrics History Last Filed Vital Signs Vital Sign Reading Time Taken Comments Blood Pressure 148/82 05/09/2020 9:54 AM BUSHING AND BROACH OPERATOR Pulse 48 05/09/2020 9:54 AM BUSHING AND BROACH OPERATOR Temperature 36 C (96.8 F) 05/09/2020 9:54 AM BUSHING AND BROACH OPERATOR Respiratory Rate 20 03/28/2020 9:05 AM BUSHING AND BROACH OPERATOR Oxygen Saturation 97% 03/28/2020 9:05 AM BUSHING AND BROACH OPERATOR Inhaled Oxygen Concentration - - Weight 132 kg (291 lb) 05/09/2020 9:54 AM BUSHING AND BROACH OPERATOR Height 162.6 cm (5' 4) 05/09/2020 9:54 AM BUSHING AND BROACH OPERATOR Body Mass Index 49.95 05/09/2020 9:54 AM BUSHING AND BROACH OPERATOR Plan of Treatment Health Maintenance Due Date Last Done Comments Breast Cancer Screening-Mammogram 1961 Depression Screening 1961 Hepatitis C Screening 1961 DTaP/Tdap/Td Vaccine (1 - Tdap) 1972 Hepatitis B Screening 1979 Regular Well Visit/Exam 18-64 1979 Influenza Vaccine (#1) 2025 0, 03/02/2019, 03/03/2018, Additional history exists Colon [...] Attending MD: Mina De Jesus MD,PHD Room: [facility] 01 Note Status: Finalized [...] were discussed and informed consent wasobtained. The [id number] was introduced through the anusand advanced to [...] Attending MD: Mina De Jesus MD,PHD Room: [place] [address] Note Status: Finalized Procedure: Colonoscopy Indications: Iron [...] Thescope was passed under direct vision. The [id number] introduced through the anus and advanced to theterminal ileum. The colonoscopy was performed withoutdifficulty. The patient tolerated the procedure well. The qualityof the bowel preparation was excellent. The quality of the bowel preparation was evaluated using the BBPS ([place] Bowel Preparation Scale) with scores of: Right [...] Relevant to Health Maintenance Insurance [facility] [id number] Advance Directives For more information, please contact: [phone] * Full Code (Latest Code Status on File) Date Activated Date Inactivated Comments 03/28/2020 8:30 AM 03/28/2020 1:22 PM * Full Code Date Activated Date Inactivated Comments 01/10/2019 8:22 AM 01/10/2019 2:45 PM * Full Code Date Activated Date Inactivated Comments 10/04/2018 12:52 PM 10/04/2018 8:01 PM Care Teams Pole Peeling Machine Operator Helper Relationship Specialty Start Date End Date Joshua Alcazar MD [address] [place] [address] PCP - General 01/04/10
--- OUTSIDE RECORDS SUMMARY | 2025-01-05 09:53 | XMS_ITS | Encounter Summary ---
Author Organization [facility] Address [address] [place] [address] Care Team Providers Care Construction Equipment Mechanic Name Role Phone Maria Luisa Alcazar Primary Care Provider Alejandra britt Encounter Details Date Type Department Care Team (Late st Contact Info) Description 09/29/2002 Outpatient Historical HIS PATIENT IN A BED [facility], [place] Britt MD [address] [facility] [address] [place] [address] ULNAR NERVE LESION (Primary Dx) Social History Tobacco Use Types Packs/Day Years Used Date Smoking Tobacco: Never Assessed Comments Unknown Sex and Gender Information Value Date Recorded Sex Assigned at Not on file Legal Sex Female 2:48 AM SUSTAINABILITY CONSULTANT Gender Identity Not on file Sexual Orientation Not on file documented as of this encounter Plan of Treatment Not on file documented as of this encounter Visit Diagnoses Diagnosis Lesion of ulnar nerve- Primary documented in this encounter Care Teams Construction Equipment Mechanic Relationship Specialty Start Date End Date Maria Luisa Alcazar PCP - General 09/29/02 documented as of this encounter
--- OUTSIDE RECORDS SUMMARY | 2025-01-05 09:53 | XMS_ITS | Clinical Summary ---
Author Organization [facility] Address [address] [facility] Attn: Epic Prelude ADT [place] [address] Care Team Providers Care Water Main Installer Helper Name Role Phone Maria Luisa Alcazar Primary Care Provider Unavailabl e Social History Tobacco Use Types Packs/Day Years Used Date Smoking Tobacco: Never Assessed Comments Unknown Sex and Gender Information Value Date Recorded Sex Assigned at Not on file Legal Sex Female 2:48 AM SIDING INSTALLER Gender Identity Not on file Sexual Orientation Not on file Plan of Treatment Health Maintenance Due Date Last Done Comments DTAP/TDAP/TD VACCINES (1 - Tdap) 1980 HPV/Cotest (21-29) 1982 CERVICAL CANCER SCREENING 1991 HPV/Cotest (30-65) 1991 PAP SMEAR 1991 BREAST CANCER SCREENING 2001 COLORECTAL SCREENING 2006 Colorectal Cancer Screening 2006 FIT-DNA Q 3 years 2006 FIT/FOBT Q 1 year 2006 Flex Sig/CT Colonography Q 5 years 2006 ZOSTER VACCINE (1 of 2) 2011 INFLUENZA VACCINE (#1) 2024 RSV VACCINE (60+ or ) (1 - 1-dose 75+ series) 2036 Care Teams Water Main Installer Helper Relationship Specialty Start Date End Date Maria Luisa Alcazar PCP - General 09/29/02
[2025-01-05 11:21] LABS: Glucose 85 mg/dL (65-110)
== END 2025-01-05 09:29 | disposition home or self-care (01) ==
LOC: CHSLAB 09:33
PROVIDERS: PCP Internal Medicine; Visit Provider Internal Medicine
DX: R73.01 Impaired fasting glucose (principal)
CPT/HCPCS: 36415; 82947

== ENCOUNTER 2025-01-17 15:55 | Outpatient (CLI) | payer OTHER, SELFPAY ==
--- NOTE | ~2025-01-17 | XR_ITS ---
EXAMINATION: XR foot RT min 3V, 01/17/2025 16:04 CDT HISTORY: Dorsum/Base of 2nd3rd metatarsal region bump/pain, WBPain COMPARISON: No comparisons available. Findings: No acute fracture or malalignment. Moderate degenerative changes. Large calcaneal spur. Moderate Achilles enthesopathy. Soft tissues unremarkable. Impression: No acute fracture or malalignment. Reviewed, dictated and finalized at location A. Impression: No acute fracture or malalignment.
--- OUTSIDE RECORDS SUMMARY | 2025-01-17 16:51 | XMS_ITS | Clinical Summary ---
Author Organization [facility] Address [address] [place] [address] Care Team Providers Care Nursing Informatics Clinical Analyst Name Role Phone Unavailable Primary Care Provider [...]
--- OUTSIDE RECORDS SUMMARY | 2025-01-17 16:51 | XMS_ITS | Patient Health Record ---
Author Organization [facility] Address [address] [place] [address] Care Team Providers Care Registered Route Associate Name Role Phone Ottoniel BALDWIN, Joshua Primary Care Provider Leigh HOWARD SHOEMAKING FINISHER, CRUZITO Unavailable [phone] Allergies No Known Allergies Reason For Referral [...] Start Date Coverage End Date [facility] Benefits [address] [place], [place] [id number] Loi Jean-Baptiste Self - patient is the insured Medical (General) History Medical History History ICD Code asthma gastroesophageal reflux disease (GERD) hypertension insomnia epilepsy CANDIDA iron deficiency Surgical History Surgery Date(Month/Year) tubal ligation 1982 right ankle 2001 hysterectomy 1999 carpal tunnel gatsric bypass 2008 colonoscopy- normal 2011 perforated peptic ulcer 2009
--- OUTSIDE RECORDS SUMMARY | 2025-01-17 16:51 | XMS_ITS | Clinical Summary ---
Author Organization [facility] Address [address] [place] [address] Care Team Providers Care Electronic Warfare Linguist Name Role Phone Joshua Alcazar MD Primary Care Provider [phone] Allergies Active Allergy Reactions Criticality Noted Date [...] (10/12/2018): Added automatically from request for surgery [id number] Malabsorption 04/20/2015 Weight gain 01/05/2015 No diagnosis on [place] I 09/04/2014 Morbid obesity 09/04/2014 History of [...] on file Legal Sex Female 1:13 AM CHISEL MORTISER OPERATOR Gender Identity Not on file Sexual Orientation Not on file Obstetrics History Last Filed Vital Signs Vital Sign Reading Time Taken Comments Blood Pressure 148/82 05/09/2020 9:54 AM CHISEL MORTISER OPERATOR Pulse 48 05/09/2020 9:54 AM CHISEL MORTISER OPERATOR Temperature 36 C (96.8 F) 05/09/2020 9:54 AM CHISEL MORTISER OPERATOR Respiratory Rate 20 03/28/2020 9:05 AM CHISEL MORTISER OPERATOR Oxygen Saturation 97% 03/28/2020 9:05 AM CHISEL MORTISER OPERATOR Inhaled Oxygen Concentration - - Weight 132 kg (291 lb) 05/09/2020 9:54 AM CHISEL MORTISER OPERATOR Height 162.6 cm (5' 4) 05/09/2020 9:54 AM CHISEL MORTISER OPERATOR Body Mass Index 49.95 05/09/2020 9:54 AM CHISEL MORTISER OPERATOR Plan of Treatment Health Maintenance Due [...] Attending MD: Mina De Jesus MD,PHD Room: [facility] MAIN GI 01 Note Status: Finalized Procedure: [...] were discussed and informed consent wasobtained. The [id number] was introduced through the anusand advanced to [...] Attending MD: Mina De Jesus MD,PHD Room: [place] [address] Note Status: Finalized Procedure: Colonoscopy Indications: Iron [...] Thescope was passed under direct vision. The [id number] introduced through the anus and advanced to theterminal ileum. The colonoscopy was performed withoutdifficulty. The patient tolerated the procedure well. The qualityof the bowel preparation was excellent. The quality of the bowel preparation was evaluated using the BBPS ([place] Bowel Preparation Scale) with scores of: Right [...] Relevant to Health Maintenance Insurance [facility] HEALTHLINK OPEN ACCESS [facility] [id number] Advance Directives For more information, please contact: [phone] * Full Code (Latest Code Status on File) Date Activated Date Inactivated Comments 03/28/2020 8:30 AM 03/28/2020 1:22 PM * Full Code Date Activated Date Inactivated Comments 01/10/2019 8:22 AM 01/10/2019 2:45 PM * Full Code Date Activated Date Inactivated Comments 10/04/2018 12:52 PM 10/04/2018 8:01 PM Care Teams Electronic Warfare Linguist Relationship Specialty Start Date End Date Joshua Alcazar MD [address] [place] [address] PCP - General 01/04/10
--- OUTSIDE RECORDS SUMMARY | 2025-01-17 16:51 | XMS_ITS | Clinical Summary ---
Author Organization [facility] Address [address] [facility] Attn: Epic Prelude ADT [place] [address] Care Team Providers Care Hand Method Lasting Machine Operator Name Role Phone Maria Luisa Alcazar Primary Care Provider Unavailabl e Social History Tobacco Use Types Packs/Day Years Used Date Smoking Tobacco: Never Assessed Comments Unknown Sex and Gender Information Value Date Recorded Sex Assigned at Not on file Legal Sex Female 2:48 AM WADER BOOT TOP ASSEMBLER Gender Identity Not on file Sexual Orientation [...] - 1-dose 75+ series) 2036 Care Teams Hand Method Lasting Machine Operator Relationship Specialty Start Date End Date Maria Luisa Alcazar PCP - General 09/29/02
--- OUTSIDE RECORDS SUMMARY | 2025-01-17 16:51 | XMS_ITS | Encounter Summary ---
Author Organization [facility] Address [address] [place] [address] Care Team Providers Care Fisheries Management Biologist Name Role Phone Maria Luisa Alcazar Primary Care Provider Alejandra britt Encounter Details Date Type Department Care Team (Late st Contact Info) Description 09/29/2002 Outpatient Historical HIS PATIENT IN A BED [facility], Salvador Britt MD [address] [facility] [address] [place] [address] ULNAR NERVE LESION (Primary Dx) Social History Tobacco Use Types Packs/Day Years Used Date Smoking Tobacco: Never Assessed Comments Unknown Sex and Gender Information Value Date Recorded Sex Assigned at Not on file Legal Sex Female 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
== END 2025-01-17 15:56 | disposition home or self-care (01) ==
LOC: CHSIMG 15:57
PROVIDERS: PCP Internal Medicine; Visit Provider Nurse Practitioner Family
DX: M79.671 Pain in right foot (principal); M77.31 Calcaneal spur, right foot; M77.9 Enthesopathy, unspecified
CPT/HCPCS: 73630

== ENCOUNTER 2025-03-11 11:00 | Outpatient (CLI) | payer OTHER, SELFPAY ==
--- OUTSIDE RECORDS SUMMARY | 2025-01-26 09:00 | XMS_ITS ---
Author Organization [facility] Address [address] [place], [place] [id number] Care Team Providers Care Preanalytics Team Lead Name Role Phone JAMES JAZ Unavailable [phone] Amanda Alcazar Unavailable Unavailable Allergies No Known Allergies REASON FOR VISIT lump top of foot Medications Medication SIG (Take, Route, Fr equency, Duration) Notes Start Date End Date Status Stool Softener Activ e Vitamin B 12 Active Multi Vitamin Active Vital Signs Height 63 in 01/26/2025 Weight 292 lbs 01/26/2025 BMI 51.72 kg/m2 01/26/2025 Height-cm 160.02 cm 01/26/2025 Weight-kg 132.45 kg 01/26/2025 Encounters Encounter Location Date Provider Diagnosis [address] [id number] 01/26/2025 JAZ RAMIREZ Posterior tibial tendinitis of right lower extremity M76.821 ; Osteophyte, right foot M25.774 ; Calcaneal spur of right foot M77.31 ; Metatarsalgia of right foot M77.41 and Pain in right foot M79.671 Assessments Encounter Date Diagnosis (ICD Code) Assessment Notes Treatment Notes Treatment Clinical Notes Section Notes 01/26/2025 Posterior tibial tendinitis of right lower extremity (ICD-10 - M76.821) 01/26/2025 Osteophyte, right foot (ICD-10 - M25.774) 01/26/2025 Calcaneal spur of right foot (ICD-10 - M77.31) 01/26/2025 Metatarsalgia of right foot (ICD-10 - M77.41) 01/26/2025 Pain in right foot (ICD-10 - M79.671) Plan Of Treatment Next Appt Details Follow Up: see how shot and powersteps helped,relaced shoes, Reason: Provider Name:JAZ WALKER, 03/16/2025 02:40:00 PM, [address] [place] [address], [phone], History and Physical Notes * HPI (History of Present Illness) Category Sub-Category Detail Notes Category Not es HPI New Complaint Patient presents for a new patient consultation., Patient complains of an issue to the right foot, says the lump was there for awhile with no pain then labor day weekend started to be in pain constantly even when sitting, patient denies any injury, MA: Progress Notes * CANDIS BlaiseaDOB:1960 (64 yo F)Acc No.[id number]:01/26/2025 Progress Notes Patient: Bronwyn Lew Provider: Noah RAMIREZ :1960 A ge:64 Y S ex:Female Date:01/26/2025 Address:[address] [place], [place] [id number] Subjective: * Chief Complaints: * L ump top of foot * HPI: H PI: New Complaint P atient presents for a new patient consultation., Patient complains of an issue to the right foot, says the lump was there for awhile with no pain then labor day weekend started to be in pain constantly even when sitting, patient denies any injury, MA: ab. * Medical History: Sleep apnea Medical History Verified * Surgical History: Denies Past Surgical History. Surgical History verified. * Hospitalization/Major Diagno stic Procedure: Denies Past Hospitalization. Hospitalization Verified. * Family History: F amily History Verified.. N on-Contributory.. * Social History: Social History Verified. No Social History documented. * Medications: T akingStool Softener Vitamin B 12 Multi Vitamin Medication List reviewed and reconciled with the patientTaking Stool Softener Taking Vitamin B 12 Taking Multi Vitamin Medication List reviewed and reconciled with the patient * Allergies: N .K.DJuvenalAllergies Verified. Objective: * Vitals: S hoe Size: 10w, Wt:292lbs, Wt-k.45 kg, Ht: 63 in, Ht-cm: 160.02 cm, BMI:51.72Index, Body Surface Area: 2.42. Assessment: * Assessment: 1. P osterior tibial tendinitis of right lower extremity - M76.821 (Primary) 2 . O steophyte, right foot - M25.774 3 . C alcaneal spur of right foot - M77.31 4 . M etatarsalgia of right foot - M77.41 5 . P ain in right foot - M79.671 Plan: * Procedure Codes: 2 0550 INJ TENDON SHEATH/LIGAMENT, Modifiers: RT * Follow Up: s ee how shot and powersteps helped,relaced shoes Billing Information: * Visit Code: 61612 Office Visit, New Pt., Level 3. Modifiers: 25 * Procedure Codes: 12745 INJ TENDON SHEATH/LIGAMENT. Modifiers: RT * Electronic signature of GORGE RAMIREZ DPM on 03/11/2025 at 11:03 AM COSTUME DESIGNER Sign off status: Pending * Provider: Noah RAMIREZ Date: 0 01/26/2025 Generated for Marcelle horton/Yumi/Saray on: 05/11/2024 11:03 AM COSTUME DESIGNER
--- OUTSIDE RECORDS SUMMARY | 2025-03-11 11:03 | XMS_ITS | Clinical Summary ---
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
--- OUTSIDE RECORDS SUMMARY | 2025-03-11 11:03 | XMS_ITS | Encounter Summary ---
Author Organization [facility] Address [address] [place] [address] Care Team Providers Care Supervisor Malted Milk Name Role Phone Maria Luisa Alcazar Primary Care Provider Alejandra britt Encounter Details Date Type Department Care Team (Late st Contact Info) Description 09/29/2002 Outpatient Historical HIS PATIENT IN A BED [facility], Salvador Britt MD [address] [facility] [address] [place] [address] ULNAR NERVE LESION (Primary Dx) Social History Tobacco Use Types Packs/Day Years Used Date Smoking Tobacco: Never Assessed Comments Unknown Sex and Gender Information Value Date Recorded Sex Assigned at Not on file Legal Sex Female 2:48 AM INTAKE SPECIALIST Gender Identity Not on file Sexual Orientation Not on file documented as of this encounter Plan of Treatment Not on file documented as of this encounter Visit Diagnoses Diagnosis Lesion of ulnar nerve- Primary documented in this encounter Care Teams Supervisor Malted Milk Relationship Specialty Start Date End Date Maria Luisa Alcazar PCP - General 09/29/02 documented as of this encounter
--- OUTSIDE RECORDS SUMMARY | 2025-03-11 11:03 | XMS_ITS | Patient Health Record ---
Author Organization [facility] Address [address] [place] [address] Care Team Providers Care Handkerchief Cutter Name Role Phone Ottoniel BALDWIN, Joshua Primary Care Provider Leigh HOWARD SHIPPING PACKER, CRUZITO Unavailable [phone] Allergies No Known Allergies Reason For [...] Start Date Coverage End Date [facility] Benefits [address] [place], [place] [id number] I [id number] Loi Jean-Baptiste Self - patient is the insured Medical (General) History Medical History History ICD Code asthma gastroesophageal reflux disease (GERD) hypertension insomnia epilepsy CANDIDA iron deficiency Surgical History Surgery Date(Month/Year) tubal ligation 1982 right ankle 2001 hysterectomy 1999 carpal tunnel gatsric bypass 2008 colonoscopy- normal 2011 perforated peptic ulcer 2009
--- OUTSIDE RECORDS SUMMARY | 2025-03-11 11:03 | XMS_ITS | Patient Health Record ---
Author Organization [facility] Address [address] [place], [place] [address] Care Team Providers Care Wetlands Conservation Laborer Name Role Phone JAMES JAZ Unavailable [phone] Amanda Alcazar Unavailable Unavailable Allergies No Known Allergies Reason For Referral No Information Medications Medication SIG (Take, Route, Fr equency, Duration) Notes Start Date End Date Status Vitamin B 12 Active Stool Softener Activ e Multi Vitamin Active Vital Signs Height-cm 160.02 cm 02/16/2025 Weight-kg 132.45 kg 02/16/2025 Height 63 in 02/16/2025 Weight 292 lbs 02/16/2025 BMI 51.72 kg/m2 02/16/2025 Encounters Encounter Location Date Provider Diagnosis [address] [id number] 01/26/2025 JAZ RAMIREZ Posterior tibial tendinitis of right lower extremity M76.821 ; Osteophyte, right foot M25.774 ; Calcaneal spur of right foot M77.31 ; Metatarsalgia of right foot M77.41 and Pain in right foot M79.[address] [id number] 02/16/2025 JAZ RAMIREZ Plantar fasciitis M72.2 ; Osteophyte, right foot M25.774 and Pain in right foot M79.671 Assessments Encounter Date Diagnosis (ICD Code) Assessment Notes Treatment Notes Treatment Clinical Notes Section Notes 01/26/2025 Osteophyte, right foot (ICD-10 - M25.774) 01/26/2025 Posterior tibial tendinitis of right lower extremity (ICD-10 - M76.821) 02/16/2025 Osteophyte, right foot (ICD-10 - M25.774) 02/16/2025 Plantar fasciitis (ICD-10 - M72.2) 02/16/2025 Pain in right foot (ICD-10 - M79.671) 01/26/2025 Calcaneal spur of right foot (ICD-10 - M77.31) 01/26/2025 Metatarsalgia of right foot (ICD-10 - M77.41) 01/26/2025 Pain in right foot (ICD-10 - M79.671) Plan Of Treatment Next Appt Details Provider Name:JAZ WALKER, 03/16/2025 02:40:00 PM, [address] [place] [address], [id number], Insurance Providers Payer Name Payer Address Payer Phone Subscriber Number Group Number Insured Name Patient Relationship to Insured Coverage Start Date Coverage End Date [employer] PPO [address] [place], [place] [id number] I [id number] Bronwyn Jean-Baptiste Self - patient is the insured Medical (General) History Medical History History ICD Code Sleep apnea
--- OUTSIDE RECORDS SUMMARY | 2025-03-11 11:03 | XMS_ITS | Clinical Summary ---
Author Organization [facility] Address [address] [place] [address] Care Team Providers Care Continuous Absorption Process Operator Name Role Phone Unavailable Primary Care Provider [...] Vaccines (1 of 2) 2011 COVID-19 Vaccine (2024-2 6 season) 2025 Influenza Adult (#1) 2025 RSV Immunization or 60+ Years (1 - 1-dose 75+ series) 2036 Hepatitis A Vaccines Aged Out No long er eligible based on patient's age to complete this topic Meningococcal B Vaccine Aged Out No l onger eligible based on patient's age to complete this topic Meningococcal Vaccine Aged Out No juan diego nathaly eligible based on patient's age to complete this topic RSV Immunizations Under 20 Months Aged Out No longer eligible based on patient's age to complete this topic
--- OUTSIDE RECORDS SUMMARY | 2025-03-11 11:04 | XMS_ITS | Clinical Summary ---
Author Organization [facility] Address [address] [address] Care Team Providers Care Long Term Name Role Phone Joshua Alcazar MD Primary Care Provider [phone] Allergies Active Allergy Reactions Criticality Noted Date [...] (10/12/2018): Added automatically from request for surgery [id number] Malabsorption 04/20/2015 Weight gain 01/05/2015 No diagnosis on [place] I 09/04/2014 Morbid obesity 09/04/2014 History of [...] on file Legal Sex Female 1:13 AM DIRECTOR MACHINE Gender Identity Not on file Sexual Orientation Not on file Last Filed Vital Signs Vital Sign Reading Time Taken Comments Blood Pressure 148/82 05/09/2020 9:54 AM DIRECTOR MACHINE Pulse 48 05/09/2020 9:54 AM DIRECTOR MACHINE Temperature 36 C (96.8 F) 05/09/2020 9:54 AM DIRECTOR MACHINE Respiratory Rate 20 03/28/2020 9:05 AM DIRECTOR MACHINE Oxygen Saturation 97% 03/28/2020 9:05 AM DIRECTOR MACHINE Inhaled Oxygen Concentration - - Weight 132 kg (291 lb) 05/09/2020 9:54 AM DIRECTOR MACHINE Height 162.6 cm (5' 4) 05/09/2020 9:54 AM DIRECTOR MACHINE Body Mass Index 49.95 05/09/2020 9:54 AM DIRECTOR MACHINE Plan of Treatment Health Maintenance Due Date [...] Attending MD: Mina De Jesus MD,PHD Room: [facility] MAIN GI 01 Note Status: Finalized Procedure: [...] were discussed and informed consent wasobtained. The [id number] was introduced through the anusand advanced to [...] Attending MD: Mina De Jesus MD,PHD Room: [place] [address] Note Status: Finalized Procedure: Colonoscopy Indications: Iron [...] Thescope was passed under direct vision. The [id number] introduced through the anus and advanced to theterminal ileum. The colonoscopy was performed withoutdifficulty. The patient tolerated the procedure well. The qualityof the bowel preparation was excellent. The quality of the bowel preparation was evaluated using the BBPS ([place] Bowel Preparation Scale) with scores of: Right [...] Relevant to Health Maintenance Insurance [facility] HE[facility]LINK OPEN ACCESS [facility] [id number] Advance Directives For more information, please contact: [phone] * Full Code (Latest Code Status on File) Date Activated Date Inactivated Comments 03/28/2020 8:30 AM 03/28/2020 1:22 PM * Full Code Date Activated Date Inactivated Comments 01/10/2019 8:22 AM 01/10/2019 2:45 PM * Full Code Date Activated Date Inactivated Comments 10/04/2018 12:52 PM 10/04/2018 8:01 PM Care Teams Long Term Relationship Specialty Start Date End Date Joshua Alcazar MD [address] [place], [place] [id number] PCP - General 01/04/10
[2025-03-11 11:31] LABS: Hematocrit 39.8 % (35.0-49.0); Hemoglobin 12.8 g/dL (12.0-15.0); Mean Corpuscular HGB Conc 32.2 g/dL (32-36); Mean Corpuscular Hemoglobin 30.3 pg (27.0-31.0); Mean Corpuscular Volume 94.1 fL (78.0-102.0); Platelet Count Result 234 K/mm3 (150-420); Red Blood Count 4.23 M/mm3 (4.20-5.40); White Blood Count 5.7 K/mm3 (4.8-10.8)
[2025-03-11 11:39] LABS: Alanine Aminotransferase 26 U/L (6-35); Albumin Level 4.2 g/dL (3.5-5.1); Alkaline Phosphatase 153 U/L (38-126); Anion Gap 6 mmol/L (4-12); Aspartate Amino Transferase 31 U/L (14-36); Bilirubin,Total 1.2 mg/dL (0.2-1.3); Blood Urea Nitrogen 10 mg/dL (7-17); Calcium 9.2 mg/dL (8.4-10.2); Carbon Dioxide 26 mmol/L (22-30); Chloride 111 mmol/L (98-107); Cholesterol 150 mg/dL (0-200); Estimated Glomerular Filt Rate > 60; Glucose 92 mg/dL (65-110); HDL Direct 83 mg/dL; Iron 105 ug/dL (37-170); Osmolality Calculated 295 mOsm/kg (285-295); Potassium 4.3 mmol/L (3.4-5.0); Sodium 143 mmol/L (137-145); Total Protein 6.5 g/dL (6.3-8.2); Triglycerides 87 mg/dL (<150)
[2025-03-11 11:55] LABS: Free T3 3.70 pg/mL (2.18-3.98)
[2025-03-11 11:57] LABS: Free T4 Free Thyroxine 1.04 ng/dL (0.78-2.19)
[2025-03-11 12:12] LABS: Add Urine Microscopic? NO; Appearance Urine Clear (Clear); Glucose Urine UA Negative (Negative); Leukocyte Esterase Ur Negative (Negative); Nitrate Urine Negative (Negative); Specific Grav Ur 1.020 (1.010-1.020)
[2025-03-11 14:16] LABS: Thyroid Stimulating Hormone 2.340 uIU/mL (0.465-4.680)
[2025-03-11 14:20] LABS: Ferritin 14.60 ng/mL (11.1-264)
[2025-03-12 14:08] LABS: Folate, Hemolysate 464.0 ng/mL (Not Estab.); Folate, RBC 1079 ng/mL (>498); Hematocrit 43.0 % (34.0-46.6)
== END 2025-03-11 11:01 | disposition home or self-care (01) ==
LOC: CHSLAB 11:02
PROVIDERS: PCP Internal Medicine; Visit Provider Internal Medicine
DX: R53.82 Chronic fatigue, unspecified (principal); Z98.84 Bariatric surgery status; J45.20 Mild intermittent asthma, uncomplicated; G40.309 Generalized idiopathic epilepsy and epileptic syndromes, not intractable, without status epilepticus; K21.9 Gastro-esophageal reflux disease without esophagitis; J31.0 Chronic rhinitis
CPT/HCPCS: 36415; 80053; 80061; 81003; 82306; 82728; 82747; 83540; 84439; 84443; 84481; 84590; 84630; 85027